=== PATIENT | female | born 1950 | race Caucasian/White ===

== ENCOUNTER 2019-09-18 23:42 | Inpatient (IN) | payer OTHER ==
--- OUTSIDE RECORDS SUMMARY | 2019-09-18 23:45 | XMS REPORT ---
:1950 Author Organization eClinicalWorks Care Team Providers Name Role Phone Mccann, Na Provider Role Unavailable Allergies, Adverse Reactions, Alerts Substance Reaction Event Type Bactrim DS Info Not Available Drug Allergy Problems Problem Type Condition Code Onset Dates Condition Status Assessment Influenza vaccination declined Z28.21 Active Assessment Vitamin D deficiency E55.9 Active Assessment Colon cancer screening declined Z53.20 Active Assessment Screening for osteoporosis Z13.820 Active Assessment Screening for breast cancer Z12.39 Active Assessment Body mass index (BMI) of 40.1 to Z68.41 Active 44.9 in adult Problem Depression with anxiety F41.8 Active Assessment Osteoporosis without current M81.0 Active pathological fracture, unspecified osteoporosis type Problem Benign essential HTN I10 Active Assessment CKD (chronic kidney disease) stage N18.3 Active 3, GFR 30-59 ml/min Problem Yeast infection of the skin B37.2 Active Problem CKD (chronic kidney disease) stage N18.3 Active 3, GFR 30-59 ml/min Problem Seasonal allergies J30.2 Active Problem Screening for breast cancer Z12.39 Active Problem Bilateral lower extremity edema R60.0 Active Assessment Hypokalemia E87.6 Active Assessment Bilateral lower extremity edema R60.0 Active Problem Vitamin D deficiency E55.9 Active Assessment GERD with esophagitis K21.0 Active Problem Body mass index (BMI) of 40.1 to Z68.41 Active 44.9 in adult Problem Osteoporosis without current M81.0 Active pathological fracture, unspecified osteoporosis type Problem Elevated blood pressure reading I10 Active with diagnosis of hypertension Problem Hypokalemia E87.6 Active Problem Memory disturbance R41.3 Active Assessment Elevated blood pressure reading I10 Active with diagnosis of hypertension Assessment Encounter for general adult medical Z00.01 Active examination with abnormal findings Problem Osteoporosis M81.0 Active Problem Obese E66.9 Active Problem Senile cataract, unspecified H25.9 Active age-related cataract type, unspecified laterality Problem GERD with esophagitis K21.0 Active Medications Medication Code Code Instructions Start End Status Dosage System Date Date Alendronate NDC 51766157814 70 MG Orally December Active TAKE ONE Sodium 28, WEEKLY 2019 Cholecalciferol ND 0 5000 UNIT Active 1 capsule Orally Once a day Losartan [facility] 94108760952 50 MG Orally Active 1 tablet Potassium Once a day Nystatin [facility] 05481063573 [id number] UNIT/ML Active 1 application Mouth/Throat to affected Four times a area day Spironolactone [facility] 29042355177 50 MG Orally Active 1 tablet with Once a day food Metoprolol [facility] 06318613533 50 MG Orally Active 1 tablet with Tartrate Twice a day food Triamcinolone [facility] 57979645942 0.1 % Active 1 application Acetonide Externally to affected Twice a day area Protonix [facility] 93425076938 40 MG Orally Active 1 tablet Once a day Potassium [facility] 16644074888 20 MEQ Orally March 07, Active 2 packets Chloride Once a day 2019 with food Amlodipine [facility] 32131618071 5 MG Orally Active 1 tablet Besylate Once a day Donepezil HCl [facility] 36682115506 10 MG Orally Active 1 tablet at Once a day bedtime Alendronate [facility] 00535415348 70 MG Orally March 07, Active 1 tablet Sodium once a week 2019 Ketoconazole [facility] 83439225928 2 % Externally Active 1 application twice a day to affected area Results No Known Results Summary Purpose eClinicalWorks Submission
--- OUTSIDE RECORDS SUMMARY | 2019-09-18 23:45 | XMS REPORT ---
:1950 Author Organization eClinicalWorks Care Team Providers Name Role Phone Mccann, Na Provider Role Unavailable Allergies No Known Allergies Problems Problem Type Condition Code Onset Dates Condition Status Problem Osteoporosis M81.0 Active Problem Depression with anxiety F41.8 Active Problem Benign essential HTN I10 Active Problem Memory disturbance R41.3 Active Problem Senile cataract, unspecified H25.9 Active age-related cataract type, unspecified laterality Problem GERD with esophagitis K21.0 Active Problem Obese E66.9 Active Problem Elevated blood pressure reading with I10 Active diagnosis of hypertension Problem Body mass index (BMI) of 40.1 to Z68.41 Active 44.9 in adult Problem Hypokalemia E87.6 Active Problem Seasonal allergies J30.2 Active Problem Yeast infection of the skin B37.2 Active Problem Osteoporosis without current M81.0 Active pathological fracture, unspecified osteoporosis type Problem CKD (chronic kidney disease) stage N18.3 Active 3, GFR 30-59 ml/min Medications No Known Medications Results No Known Results Summary Purpose eClinicalUSDS Submission
[2019-09-19 00:33] LABS: Urine Blood 3+ (NEG); Urine Glucose NEGATIVE (NEG); Urine Protein 2+ (NEG); Urine Specific Gravity 1.015 (1.005-1.030); Urine pH 6.5 (5.0-7.0)
[2019-09-19 00:38] LABS: Urine Bacteria LOADED /HPF (<20)
[2019-09-19 00:39] LABS: Urine Culture Reflex Order NOT NEEDED
[2019-09-19 01:53] LABS: Basophils % 0.1 % (0-1.3); Hematocrit 45.8 % (36.0-45.0); Lymphocytes % 4.4 % (15.3-44.8); MPV 8.5 fL (7.6-11.3); RBC Red Blood Cell Count 4.83 M/uL (3.86-4.86)
[2019-09-19 01:54] LABS: Protime INR 1.37
[2019-09-19 02:13] LABS: Albumin 3.5 g/dL (3.4-5.0); Bilirubin Direct 0.5 mg/dL (0-0.2); Bilirubin Total 1.5 mg/dL (0.2-1.0); Magnesium 1.8 mg/dL (1.8-2.4); Protein, Total 7.8 g/dL (6.4-8.2); Troponin (Emerg Dept Use Only) 0.1 ng/mL (0.0-0.045)
[2019-09-19 02:14] LABS: Potassium 2.4 mmol/L (3.5-5.1)
[2019-09-19 02:16] LABS: Blood Morphology Comment NOT SEEN (NOT SEEN); Platelet Estimate ADEQ
--- NOTE | 2019-09-19 02:30 | ER ---
Nurse's Notes [facility] Name: Keara Castañeda Age: 68 yrs Sex: Female : 1950 Arrival Date: 09/18/2019 Time: 23:48 Bed 4 Private MD: Diagnosis: Confusion. Urosepsis. Hypokalemia Presentation: 09/18 23:53 Presenting complaint: EMS states: "it was reported to use that the pt had fallen today jd3 and has been on the ground since roughly 1230. family said they talked to her at 0900 this morning and she was fine. family reported to us that she has a history of UTI's that cause AMS. the pt can tell us her name and date of , but is disoriented to time, situation. pt denies any pain at this time. the pt smelled heavily of urine on our arrival. family reported to us that she has recently been diagnosed with a UTI. when asking for home medications we were not able to find any in the house and family reported to us that there might be a problem with getting medications filled having problems with the pharmacy and insurance.". Transition of care: patient was not received from another setting of care. Onset of symptoms was September 18, 2019. Risk Assessment: Do you want to hurt yourself or someone else? Patient reports no desire to harm self or others. Initial Sepsis Screen: Does the patient meet any 2 criteria? Altered Mental Status. No. Patient's initial sepsis screen is negative. Does the patient have a suspected source of infection? No. Patient's initial sepsis screen is negative. Care prior to arrival: IV initiated. 20 GA, in the right antecubital area. 23:53 Method Of Arrival: EMS: [facility] jd3 23:53 Acuity: SELENA 2 jd3 Historical: - Allergies: 09/19 00:00 Codeine; jd3 00:00 Sulfa (Sulfonamide Antibiotics); jd3 - Home Meds: 00:14 Unable to obtain [Active]; jd3 - PMHx: 00:00 brain aneurysm; embolism uknown; Hypertension; UTI; jd3 00:14 High Cholesterol; jd3 - PSHx: 00:00 brain surgery; shunt placement; Tonsillectomy; vena cava filter; abd sx; jd3 - Immunization history:: Adult Immunizations up to date. - Social history:: Smoking status: Patient/guardian denies using tobacco. - Ebola Screening: : Patient negative for fever greater than or equal to 101.5 degrees Fahrenheit, and additional compatible Ebola Virus Disease symptoms. Screenin:05 Abuse screen: Denies threats or abuse. Nutritional screening: No deficits noted. jd3 Tuberculosis screening: No symptoms or risk factors identified. Fall Risk Fall in past 12 months (25 points). IV access (20 points). Ambulatory Aid- Crutches/Cane/Walker (15 pts). Gait- Weak (10 pts.). Mental Status- Overestimates/Forgets Limitations (15 pts.). Total Valencia Fall Scale indicates High Risk Score (45 or more points). Fall prevention measures have been instituted. Side Rails Up X 2 Placed Close to Nursing Station Frequent Obs/Assessments Occuring Family Present and informed to notify staff if the need to leave the bedside. Assessment: 00:02 General: Appears in no apparent distress. comfortable, Behavior is calm, cooperative, jd3 Smells of urine. Pain: Denies pain. Neuro: Level of Consciousness is awake, alert, obeys commands, confused, Oriented to person, place. Cardiovascular: Denies chest pain, Heart tones S1 S2 present Capillary refill < 3 seconds Patient's skin is warm and dry. Respiratory: Airway is patent Respiratory effort is even, unlabored, Respiratory pattern is regular, symmetrical, Breath sounds are clear bilaterally. Denies cough, shortness of breath. GI: No signs and/or symptoms were reported involving the gastrointestinal system. : Urine is cloudy, Denies burning with urination. EENT: No signs and/or symptoms were reported regarding the EENT system. Derm: Skin is intact, Skin is dry, Skin is normal, Skin temperature is warm Wound noted left elbow Wound is hematoma and small aberration noted to left elbow. Musculoskeletal: Circulation, motion, and sensation intact. Range of motion: intact in all extremities. 00:32 Reassessment: Patient appears in no apparent distress at this time. No changes from jd3 previously documented assessment. Patient and/or family updated on plan of care and expected duration. Pain level reassessed. family at bedside. 01:00 Reassessment: Patient appears in no apparent distress at this time. No changes from jd3 previously documented assessment. Patient and/or family updated on plan of care and expected duration. Pain level reassessed. 02:06 Reassessment: Patient appears in no apparent distress at this time. No changes from jd3 previously documented assessment. Patient and/or family updated on plan of care and expected duration. Pain level reassessed. pt A\\T\\O X 2. disoriented to time and situation. even and unlabored respirations, no distress noted, in bed with family at bedside. awaiting results. 02:15 Reassessment: provider notified of critical labs involving lactate at 2.6, potassium at jd3 2.4, WBC at 22.3. 03:16 Reassessment: Patient appears in no apparent distress at this time. No changes from jd3 previously documented assessment. Patient and/or family updated on plan of care and expected duration. Pain level reassessed. awaiting orders and room assignment. 04:15 Reassessment: Patient appears in no apparent distress at this time. No changes from jd3 previously documented assessment. Patient and/or family updated on plan of care and expected duration. Pain level reassessed. Patient denies pain at this time. 04:25 Reassessment: report given to Marlys GREENE nurse for ICU 1. jd3 Vital Signs: 00:00 BP 157 / 119; Pulse 100; Resp 19 S; Temp 98.3(O); Pulse Ox 95% on R/A; Weight 85.28 kg jd3 (R); Height 5 ft. 4 in. (162.56 cm) (R); Pain 0/10; 00:31 BP 162 / 84; Pulse 97; Resp 20 S; Pulse Ox 93% on R/A; Pain 0/10; jd3 02:08 BP 151 / 94; Pulse 86; Resp 20 S; Pulse Ox 95% on R/A; jd3 03:16 BP 150 / 100; Pulse 88; Resp 19 S; Pulse Ox 95% on 2 lpm NC; jd3 04:14 BP 149 / 77; Pulse 94; Resp 15 S; Pulse Ox 94% on 2 lpm NC; Pain 0/10; jd3 00:00 Body Mass Index 32.27 (85.28 kg, 162.56 cm) jd3 ED Course: 09/18 23:48 Patient arrived in ED. ds1 23:49 Warner Rodriges MD is Attending Physician. pkl 23:53 Kurtis Fernandez, RN is Primary Nurse. jd3 23:59 Triage completed. jd3 09/19 00:01 Arm band placed on. jd3 00:05 Patient has correct armband on for positive identification. Placed in gown. Bed in low jd3 position. Call light in reach. Side rails up X2. Adult w/ patient. 01:17 CT completed. Patient tolerated procedure well. Patient moved to CT via stretcher. Patient moved back from CT. 01:45 Inserted saline lock: 20 gauge in left forearm, using aseptic technique. Blood rr5 collected. 02:15 Notified ED physician of a critical lab result(s). lactate of 2.6, potassium of 2.4, jd3 WBC of 22.3. 02:28 Jareth Santana MD is Hospitalizing Provider. pkl 04:15 Patient admitted, IV remains in place. jd3 04:15 No provider procedures requiring assistance completed. jd3 Administered Medications: 02:34 Drug: NS 0.9% 1000 ml Route: IV; Rate: 125 ml/hr; Site: left forearm; rr5 05:18 Follow up: Response: No adverse reaction; IV Status: Infusion continued upon admission jd3 02:35 Drug: Potassium Chloride 20 mEq Route: IV; Rate: per protocol; Site: left forearm; rr5 05:18 Follow up: Response: No adverse reaction; IV Status: Infusion continued upon admission jd3 Outcome: 02:29 Decision to Hospitalize by Provider. pkl 05:18 Patient left the ED. bb 05:18 Admitted to ICU accompanied by nurse, via stretcher, room 1, on monitor, with chart, jd3 Report called to Marlys GREENE 05:18 Condition: stable 05:18 Instructed on the need for admit, Demonstrated understanding of instructions. Signatures: Warner Rodriges MD MD pkl Kadeem Zavala Melvi Pascual ds1 Kristina Hardy RN RN bb Davies, Jonathon, RN RN jShahbaz Brito, RAMONA RN rr5 Corrections: (The following items were deleted from the chart) 00:06 00:05 Fall Risk Ambulatory Aid- None/Bed Rest/Nurse Assist (0 pts). Gait- Normal/Bed jd3 Rest/Wheelchair (0 pts) Mental Status- Oriented to own ability (0 pts). Total Valencia Fall Scale indicates No Risk (0-24 pts). jd3 00:00 Home Meds: blood pressure pills unknown [Inactive]; jd3 jd3 00:00 Home Meds: Tylenol [Inactive]; jd3 jd3 00:00 Home Meds: lisinopril-hydrochlorothiazide 20-12.5 mg Oral tab 2 tab once daily jd3 [Inactive]; jd3 00:02 Derm: Skin is intact, Skin is dry, Skin is normal, Skin temperature is warm jd3 jd3 00:02 General: Appears in no apparent distress. comfortable, obese, Behavior is calm, jd3 cooperative, Smells of urine. jd3 00:02 : Urine is cloudy, Denies burning with urination, jd3 jd3 04:17 04:14 Pulse 94bpm; Resp 15bpm; Spontaneous; Pulse Ox 94% 2 lpm Nasal Cannula; Pain jd3 0/10; jd3
--- NOTE | 2019-09-19 02:31 | EDPHYS ---
Physician Documentation [facility] Name: Keara Castañeda Age: 68 yrs Sex: Female : 1950 Arrival Date: 09/18/2019 Time: 23:48 Bed 4 Private MD: ED Physician Warner Rodriges HPI: 09/19 00:16 This 68 yrs old Female presents to ER via EMS with complaints of Confusion. pkl 00:16 Patient apparently fell earlier today at about 1230. Was found on the floor. has pkl history of UTI and altered mental status. Historical: - Allergies: 00:00 Codeine; jd3 00:00 Sulfa (Sulfonamide Antibiotics); jd3 - Home Meds: 00:14 Unable to obtain [Active]; jd3 - PMHx: 00:00 brain aneurysm; embolism uknown; Hypertension; UTI; jd3 00:14 High Cholesterol; jd3 - PSHx: 00:00 brain surgery; shunt placement; Tonsillectomy; vena cava filter; abd sx; jd3 - Immunization history:: Adult Immunizations up to date. - Social history:: Smoking status: Patient/guardian denies using tobacco. - Ebola Screening: : Patient negative for fever greater than or equal to 101.5 degrees Fahrenheit, and additional compatible Ebola Virus Disease symptoms. ROS: 00:20 Eyes: Negative for injury, pain, redness, and discharge, ENT: Negative for injury, pkl pain, and discharge, Neck: Negative for injury, pain, and swelling, Cardiovascular: Negative for chest pain, palpitations, and edema, Respiratory: Negative for shortness of breath, cough, wheezing, and pleuritic chest pain, Abdomen/GI: Negative for abdominal pain, nausea, vomiting, diarrhea, and constipation, Back: Negative for injury and pain. 00:20 : Negative for urinary symptoms. 00:20 MS/extremity: Negative for injury or acute deformity. 00:20 Skin: Negative for rash. 00:20 Neuro: Positive for confusion. Exam: 00:20 Head/Face: Normocephalic, atraumatic. Eyes: Pupils equal round and reactive to light, pkl extra-ocular motions intact. Lids and lashes normal. Conjunctiva and sclera are non-icteric and not injected. Cornea within normal limits. Periorbital areas with no swelling, redness, or edema. ENT: Nares patent. No nasal discharge, no septal abnormalities noted. Tympanic membranes are normal and external auditory canals are clear. Oropharynx with no redness, swelling, or masses, exudates, or evidence of obstruction, uvula midline. Mucous membranes moist. Neck: Trachea midline, no thyromegaly or masses palpated, and no cervical lymphadenopathy. Supple, full range of motion without nuchal rigidity, or vertebral point tenderness. No Meningismus. Chest/axilla: Normal chest wall appearance and motion. Nontender with no deformity. No lesions are appreciated. Cardiovascular: Regular rate and rhythm with a normal S1 and S2. No gallops, murmurs, or rubs. Normal PMI, no JVD. No pulse deficits. Respiratory: Lungs have equal breath sounds bilaterally, clear to auscultation and percussion. No rales, rhonchi or wheezes noted. No increased work of breathing, no retractions or nasal flaring. Abdomen/GI: Soft, non-tender, with normal bowel sounds. No distension or tympany. No guarding or rebound. No evidence of tenderness throughout. Back: No spinal tenderness. No costovertebral tenderness. Full range of motion. Skin: Warm, dry with normal turgor. Normal color with no rashes, no lesions, and no evidence of cellulitis. MS/ Extremity: Pulses equal, no cyanosis. Neurovascular intact. Full, normal range of motion. 00:20 Neuro: Orientation: appropriate for stated age, Mentation: is normal, Cranial nerves: grossly normal, Motor: moves all fours. Vital Signs: 00:00 BP 157 / 119; Pulse 100; Resp 19 S; Temp 98.3(O); Pulse Ox 95% on R/A; Weight 85.28 kg jd3 (R); Height 5 ft. 4 in. (162.56 cm) (R); Pain 0/10; 00:31 BP 162 / 84; Pulse 97; Resp 20 S; Pulse Ox 93% on R/A; Pain 0/10; jd3 02:08 BP 151 / 94; Pulse 86; Resp 20 S; Pulse Ox 95% on R/A; jd3 03:16 BP 150 / 100; Pulse 88; Resp 19 S; Pulse Ox 95% on 2 lpm NC; jd3 04:14 BP 149 / 77; Pulse 94; Resp 15 S; Pulse Ox 94% on 2 lpm NC; Pain 0/10; jd3 00:00 Body Mass Index 32.27 (85.28 kg, 162.56 cm) jd3 MDM: 09/18 23:49 Patient medically screened. pkl 09/19 02:26 Data reviewed: vital signs, nurses notes, lab test result(s), EKG, radiologic studies, pkl CT scan, plain films. ED course: Talked to Dr. Santana. To admit. 09/18 23:58 Order name: Urine Dipstick--Ancillary (enter results) oe 09/19 00:04 Order name: Urine Microscopic Only jd3 09/19 00:04 Order name: Urine Culture jd3 09/19 00:15 Order name: Basic Metabolic Panel pkl 09/19 00:15 Order name: CBC with Diff pkl 09/19 00:15 Order name: LFT's pkl 09/19 00:15 Order name: Magnesium pkl 09/19 00:15 Order name: NT PRO-BNP pkl 09/19 00:15 Order name: PT-INR pkl 09/19 00:15 Order name: Troponin (emerg Dept Use Only) pkl 09/19 00:20 Order name: Lactate pkl 09/19 00:33 Order name: Urine Dipstick-Ancillary; Complete Time: 00:43 EDMS 09/19 00:39 Order name: Urine Microscopic Only; Complete Time: 00:43 EDMS 09/19 02:09 Order name: Protime (+INR); Complete Time: 02:11 EDMS 09/19 00:15 Order name: XRAY Chest (1 view) pkl 09/19 00:15 Order name: CT Head Brain wo Cont pkl 09/19 02:15 Order name: Basic Metabolic Panel; Complete Time: 02:17 EDMS 09/19 02:15 Order name: Liver (Hepatic) Function; Complete Time: 02:17 EDMS 09/19 02:15 Order name: Troponin (Emerg Dept Use Only); Complete Time: 02:17 EDMS 09/19 02:15 Order name: NT PRO-BNP; Complete Time: 02:17 EDMS 09/19 02:15 Order name: Magnesium; Complete Time: 02:17 EDMS 09/19 02:15 Order name: Lactate; Complete Time: 02:17 EDMS 09/19 02:17 Order name: CBC with Automated Diff; Complete Time: 02:23 EDHI 09/19 02:17 Order name: Manual Differential; Complete Time: 02:23 EDHI 09/19 04:41 Order name: CBC with Automated Diff; Complete Time: 06:03 EDMS 09/19 04:58 Order name: Comprehensive Metabolic Panel; Complete Time: 06:03 EDHI 09/19 05:00 Order name: Troponin I [facility] 09/19 05:15 Order name: Lactate Sepsis 2 HR Follow-up; Complete Time: 06:03 EDMS 09/19 00:15 Order name: EKG; Complete Time: 00:16 pkl 09/19 00:15 Order name: Cardiac monitoring; Complete Time: 00:25 pkl 09/19 00:15 Order name: EKG - Nurse/Tech; Complete Time: 00:25 pkl 09/19 00:15 Order name: IV Saline Lock; Complete Time: 00:21 pkl 09/19 00:15 Order name: Labs collected and sent; Complete Time: 00:25 pkl 09/19 00:15 Order name: O2 Per Protocol; Complete Time: 00:19 pkl 09/19 00:15 Order name: O2 Sat Monitoring; Complete Time: 00:19 pkl Administered Medications: 02:34 Drug: NS 0.9% 1000 ml Route: IV; Rate: 125 ml/hr; Site: left forearm; rr5 05:18 Follow up: Response: No adverse reaction; IV Status: Infusion continued upon admission jd3 02:35 Drug: Potassium Chloride 20 mEq Route: IV; Rate: per protocol; Site: left forearm; rr5 05:18 Follow up: Response: No adverse reaction; IV Status: Infusion continued upon admission jd3 Disposition: 09/19/19 02:29 Hospitalization ordered by Jareth Santana for Inpatient Admission. Preliminary diagnosis is Confusion. Urosepsis. Hypokalemia. - Bed requested for Intensive Care Unit. - Status is Inpatient Admission. bb - Condition is Stable. - Problem is new. - Symptoms are unchanged. UTI on Admission? Yes Signatures: Dispatcher [facility] Johanny Luu RN RN mw Lam, Pin, MD MD pkl Ballard, Brenda, RN RN bb Davies, Jonathon, RN RN jd3 Shahbaz Chavarria RN RN rr5 Corrections: (The following items were deleted from the chart) 00:14 00:00 Home Meds: blood pressure pills unknown [Inactive]; jd3 jd3 00:14 00:00 Home Meds: Tylenol [Inactive]; jd3 jd3 00:14 00:00 Home Meds: lisinopril-hydrochlorothiazide 20-12.5 mg Oral tab 2 tab once daily jd3 [Inactive]; jd3 02:46 02:29 Hospitalization Ordered by Jareth Santana MD for Inpatient Admission. Preliminary pkl diagnosis is Confusion. Urosepsis. Hypokalemia. Bed requested for Telemetry/MedSurg (Inpatient). Status is Inpatient Admission. Condition is Stable. Problem is new. Symptoms are unchanged. UTI on Admission? Yes. pkl 03:42 02:46 09/19/2019 02:29 Hospitalization Ordered by Jareth Santana MD for Inpatient mw Admission. Preliminary diagnosis is Confusion. Urosepsis. Hypokalemia. Bed requested for Intensive Care Unit. Status is Inpatient Admission. Condition is Stable. Problem is new. Symptoms are unchanged. UTI on Admission? Yes. pkl 05:18 03:42 09/19/2019 02:29 Hospitalization Ordered by Jareth Santana MD for Inpatient bb Admission. Preliminary diagnosis is Confusion. Urosepsis. Hypokalemia. Bed requested for Intensive Care Unit. Status is Inpatient Admission. Condition is Stable. Problem is new. Symptoms are unchanged. UTI on Admission? Yes. mw
[2019-09-19] MEDS ORDERED: KCL 20 MEQ/100 mL IVPB 40 MEQ/200 ML BAG IV ONE (02:34)
[2019-09-19] MEDS ORDERED: NA CHLORIDE 0.9% 1,000 ML ONE (02:34)
[2019-09-19] MEDS ORDERED: MORPHINE 4 MG/ML SYR IV PRN (03:23)
[2019-09-19] MEDS ORDERED: ALBUTEROL 2.5 MG/3 ML NEB SOL NEB PRN (03:23)
[2019-09-19] MEDS ORDERED: ONDANSETRON 4 MG/2 ML VIAL IV PRN (03:23)
[2019-09-19] MEDS ORDERED: POTASSIUM 25 MEQ EFFERV TAB PO ONE (03:25)
[2019-09-19] MEDS ORDERED: ACETAMINOPHEN 325 MG TABLET PO PRN (03:25)
[2019-09-19] MEDS ORDERED: HYDRALAZINE HCL 20 MG/ML VIAL IV ONE (03:30)
[2019-09-19] MEDS: POTASSIUM CL 40 MEQ in NA CHLORIDE 0.9% 500 ML IV SCH ×2 (04:00→10:43)
[2019-09-19] MEDS ORDERED: D5.45NS W/KCL 20MEQ 1,000 ML IV SCH (04:00)
--- NOTE | 2019-09-19 04:20 | HP ---
Date of Admission: 09/19/2019 Presenting Complaint: Fall and confusion. History Of Present Illness: Ms. Keara Castañeda is a 68-year-old female with past medical hi story of hypertension, brain aneurysm with subarachnoid bleed in the past status post clip, resident at an assisted living facility, who was brought in after being found on the floor this evening. Ban ent apparently has fallen. Patient was noted to be confused and was transferred to the ED. In the E D, patient was initially confused, but reported mental status slowly improving. Patient is able to a nswer a few questions. She states she was trying to pull a towel from a slip box changer in the laundry room a t the long term facility, when she fell. She states she did not lose consciousness, but she was t oo weak to get up. She states she fell about 6 hours prior to presentation in the hospital. Her flower ghter, who is in the room with the patient, is happy with patient's history. Daughter, however, does not know patient's current medications or her current medical history. Patient, however, states she is on a diuretic. She recalls she has chronic low potassium and that she takes her potassium pills. She states her blood pressure has been borderline elevated, given a recent followup with her regula r physician. She denies any headaches. She denies any shortness of breath. She denies any recent d iarrhea. She denies any dysuria or urinary frequency or purulent urine smell. She states she has re current UTIs about 1 every year. Daughter states patient has occasional memory problems, but no prio r episodes of confusion. Past Medical History: Significant for hypertension, CVA with history of brain aneurysm and subarachn oid bleed, history of brain clip, history of DVT during hospitalization for the brain bleed, history of IVC filter placement. Past Surgical History: Brain aneurysm clip, IVC filter placement, tonsillectomy. Family History: Noncontributory in this elderly female. Allergies: CODEINE AND SULFA DRUGS. Home Medications: Unknown, but apparently, takes medications for blood pressure including a diuretic as well as potassium. Review of Systems: given patient's reported altered mental status, but patient denies any other symptoms exce pt as mentioned in the HPI. Social History: Patient resides in a [facility] community facility. She is fully functional at [facility], able to manage her own medications. She denies any tobacco, alcohol, or illicit drug use. Physical Examination: Current Vital Signs: Blood pressure of 163/128, pulse of 90, respiratory rate of 19, temperature afe brile, on 2 L nasal cannula. General: Elderly female, calm, awake. HEENT: Head is atraumatic, normocephalic. Pupils are equal, round, and reactive to light. [place] con junctivae. Dry oral mucosa, but secretions at the back of the throat. Neck: No JVD. No carotid bruit. Respiratory: Good air entry with mild bibasilar crepitations. Cardiovascular: S1, S2. Rate and rhythm regular. Loud A2. No murmur. No reproducible chest wall tenderness. Abdomen: Full, soft, nontender. Bowel sounds positive. No suprapubic fullness. Extremities: Trace to 1+ pedal edema bilaterally. No calf tenderness. Neuro: Patient is awake, conversant. She is oriented to person and place, but not to time. Her spe ech has good flow, but intermittent word-finding difficulty noted. She is moving extremities symmetr ically with no neurological deficit. Laboratory Data: WBC 22,000, hemoglobin 15.6, platelet 297, neutrophils 89%. INR of 1.3. Sodium 14 3, potassium 2.4, chloride 107, bicarb 26, BUN 11, creatinine 1.09, lactic acid of 2.6, calcium 8.8, magnesium 1.8. T-bilirubin of 1.5. AST and alkaline phosphatase normal. Troponin 0.1. ProBNP of 3 747. Albumin 3.5. Urinalysis shows greater than 50 wbc's with loaded urine bacteria and 3+ leukocyt e esterase. Chest x-ray shows no acute intrathoracic abnormality. Head CT shows no acute infarct or bleed. EKG shows sinus rhythm at 90 beats per minute. Mild LVH pattern, but no significant ST-segment changes. Chest x-ray shows no acute infiltrate. Prominent aortic notching noted. Impression: 1.Urinary tract infection with sepsis. 2.Severe hypokalemia. 3.Metabolic encephalopathy due to urinary tract infection. 4.Presumed diastolic congestive heart failure. 5.Hypertension, uncontrolled. Plan: We will admit patient to the intensive care unit given patient's age and comorbidities. We wi ll manage patient for the followin.UTI with sepsis. We will start patient on empiric Levaquin and Zosyn. We will obtain blood cultu re x2. We will follow urine culture and adjust antibiotics. Follow repeat lactic acid level. 2.Despite elevated proBNP and also stated history of CHF, we will start patient on low-dose hydratio n with normal saline with potassium for now. 3.Severe hypokalemia may be the cause of weakness and fall before. We will replete aggressively. W e will do both IV potassium replacement as well as p.o. We will also give 1 dose of magnesium since borderline magnesium level. 4.Metabolic encephalopathy. Follow with UTI treatment. 5.Hypertension. Patient's medications are not available at this time. We will do IV hydralazine q. 6 for now and start patient on p.o. medicine when her home medicines are obtained. Patient might nee d adjustment of her diuretic with the potassium-sparing one. 6.DVT prophylaxis. Subcutaneous Lovenox. 7.Advance directives. Daughter wishes patient to be full code, which patient is agreeable to. Total time spent in review of record, discussion with patient, and evaluation was greater than 70 min utes. EO/MODL Voice ID: [id number]
[2019-09-19 04:36] LABS: Basophils % 0.2 % (0-1.3); Hematocrit 41.1 % (36.0-45.0); Lymphocytes % 4.5 % (15.3-44.8); MPV 8.9 fL (7.6-11.3); RBC Red Blood Cell Count 4.38 M/uL (3.86-4.86)
[2019-09-19 04:58] LABS: Albumin 3.2 g/dL (3.4-5.0); Bilirubin Total 1.5 mg/dL (0.2-1.0); Potassium 2.7 mmol/L (3.5-5.1); Protein, Total 7.1 g/dL (6.4-8.2)
[2019-09-19 05:00] LABS: Troponin I 0.15 ng/mL (0.0-0.045)
[2019-09-19 05:33] VITALS: BMI 32.1
[2019-09-19] MEDS: Levofloxacin500mg IV 500 MG/100 ML BAG IV SCH (05:55)
[2019-09-19] MEDS: METOPROLOL TAR 25 MG TAB PO SCH ×2 (05:58→17:21)
[2019-09-19] MEDS: PANTOPRAZOLE 40MG TABLET PO SCH (05:58)
[2019-09-19 07:29] LABS: CKMB Creatine Kinase MB 16.1 ng/mL (0.3-3.6)
--- NOTE | 2019-09-19 08:49 | RAD REPORT ---
EXAM DESCRIPTION: Carlitos Single View09/19/2019 12:54 am CLINICAL HISTORY: Chest pain COMPARISON: 2017 FINDINGS: The lungs appear clear of acute infiltrate. The heart is mildly enlarged IMPRESSION: No acute abnormalities displayed
--- NOTE | 2019-09-19 09:39 | EKG ---
Test Date: 2019-09-19 Test Time: 00:23:38 Order Management Specialist: RR MEASUREMENT RESULTS: Intervals: Rate: 101 SD: 208 QRSD: 96 QT: 376 QTc: 487 Tinnie: P: 47 SD: 208 QRS: -34 T: 0 INTERPRETIVE STATEMENTS: Sinus tachycardia with premature atrial complexes Left axis deviation non specific ST and T abnormality Abnormal ECG Compared to ECG 11/13/2016 16:51:10 Atrial premature complex(es) now present Sinus rhythm no longer present Ventricular premature complex(es) no longer present Electronically Signed On 09-19-19 09:39:12 CHILD CARE by Rm Arriola
[2019-09-19] MEDS ORDERED: NA CHLORIDE 0.9% 1,000 ML IV SCH (10:00)
[2019-09-19] MEDS: HEPARIN 5000 UNIT/ML 1 ML VIAL SQ SCH ×2 (10:14→17:21)
[2019-09-19] MEDS: THIAMINE HCL 100 MG TABLET PO SCH (10:16)
--- NOTE | 2019-09-19 10:21 | RAD REPORT ---
EXAM DESCRIPTION: CT - Head Brain Wo Cont - 09/19/2019 2:30 am CLINICAL HISTORY: Fall, confusion. Prior MCA aneurysm. COMPARISON: 02/05/2018 TECHNIQUE: Axial [address] imaging of the brain. Reformatted coronal and sagittal images ob tained. This examination was performed according to our departmental dose optimization program, which include s automated exposure control, adjustment of the mA and/or kV according to patient size and/or use of iterative reconstruction technique. FINDINGS: Right occipital intraventricular shunt catheter terminates within the medial aspect of the frontal horn of the right lateral ventricle. Position is stable. Mild prominence of the ventricles d ue to cortical atrophy. The ventricle size and contour stable since 2018. There is left lateral front al and temporal encephalomalacia due to prior MCA infarct and prior surgery. Metallic densities along the left MCA territory from prior surgery. Overlying lateral left temporal craniotomy also noted. There is significant decreased white matter attenuation secondary to chronic microvascular ischemic c hange. There is no mass or midline shift. There is no intracranial acute bleed. The cerebellum and ve rmis appear normal. Fourth ventricle is midline. Intraorbital contents appear normal. Clear paranasal sinuses and mastoid air cells as visualized. Sku ll base is intact. Mild right parietal scalp soft tissue swelling. No foreign body or subcutaneous em physema. IMPRESSION: 1. Right parietal scalp soft tissue edema. No intracranial bleed or skull fracture. 2. Stable moderate to marked senescent brain changes. Stable postoperative left temporal changes as d etailed above. Electronically signed by: Hazel Drake DO 09/19/2019 2:21 AM FREELANCE OPERATOR Due to temporary technical issues with the PACS/Fluency reporting system, reports are being signed by the in house radiologist as a courtesy to ensure prompt reporting. The interpreting radiologist is f ully responsible for the content of the report
[2019-09-19] MEDS: PIPER/TAZO/NS 3.375gm 3.375 GM/100 ML BAG IVPB SCH ×2 (10:43→20:05)
[2019-09-19] MEDS: NS KCL 40MEQ 40 MEQ/1,000 ML BAG IV SCH (15:06)
[2019-09-19] MEDS ORDERED: POTASSIUM CL 40 MEQ in NA CHLORIDE 0.9% 500 ML IV ONE (16:00)
--- NOTE | 2019-09-19 16:27 | PN ---
Date of Progress Note: 09/19/2019 Subjective: Patient seen and examined. Chart reviewed and case discussed with RN. Patient still se ems to be somewhat lethargic, ill-appearing, and complains of some generalized malaise. Code Status: Full. Medications: List reviewed. Physical Examination: Vital Signs: Temperature 100, pulse 96, blood pressure 150/93, respirations 16, O2 of 97% on room ai r. General: Awake, alert, oriented x3, obese female, ill-appearing. CV: S1, S2. Sinus tachycardia. Peripheral pulses present. Respiratory: Moving air well bilaterally. No wheezing or stridor. No use of accessory muscles. Gastrointestinal: Abdomen is soft, nontender, nondistended. Positive bowel sounds. Extremities: No clubbing, cyanosis, or edema. Neurologic: Nonfocal. Laboratory Data: Sodium 145, potassium 2.7, chloride 110, CO2 of 25, BUN 11, creatinine 0.99, glucos e 121. Lactate 2.6. Repeat lactate is 1.9, calcium 8.4, total bilirubin 1.5, AST 103, ALT 36. CK l evel is 4198, troponin 0.15. Albumin 3.2. Repeat potassium 2.7. WBC 21.4, H and H 14.6 and 41.1, p latelets 267, neutrophils 87%. Microbiology studies are pending. Head CT scan shows right parietal scalp soft tissue edema. No intracranial bleed or skull fracture. Stable moderate to marked senesce nt brain changes. Stable postoperative left temporal changes as detailed above. Assessment And Plan: 1.Sepsis secondary to urinary tract infection. We will continue with IV fluids, broad-spectrum IV a ntibiotics. Follow up on cultures. Patient has elevated white blood cell count. Lactate is normali zed. Has multiple electrolyte abnormalities. 2.Acute cystitis with hematuria. We will continue on IV antibiotics. We will follow up on urine cu lture. 3.Acute metabolic encephalopathy, patient is now back to baseline. 4.Diastolic congestive heart failure, probably we will continue with monitoring I's and O's. 5.Essential hypertension, uncontrolled. We will continue with hydralazine p.r.n. 6.Hypokalemia. We will replace and monitor. 7.Elevated troponin level likely due to sepsis, doubt acute coronary syndrome. 8.Acute rhabdomyolysis, nontraumatic. CK level is 4198. We will adjust IV fluids. Consult Nephrol ogy. Plan: Continue monitoring in ICU setting. SA/MODL Voice ID: [id number] Report ID: [id number]
--- NOTE | 2019-09-19 16:57 | CON ---
Date of Consultation: 09/19/2019 Reason For Consultation: Hypokalemia, hypomagnesemia, rhabdomyolysis. History Of Present Illness: This is a pleasant 68-year-old female with significant past medical hist ory of hypertension, CVA, status post brain aneurysm clip, complicated with subarachnoid bleed, DVT s tatus post IVC filter, apparently patient found on the floor in the assisted living for almost 10-12 hours after fall. Upon arrival to the hospital, found to have UTI and rhabdomyolysis. For that reas on, we have been consulted. Patient was started on aggressive hydration. Patient is slightly confus ed. Patient denied any fever, any chills. Past Medical History: Includes: 1.Hypertension. 2.CVA. 3.Brain aneurysm, status post clips. 4.Subarachnoid hemorrhage. 5.DVT status post IVC filter. Past Surgical History: Includes: 1.Brain aneurysm clip. 2.IVC filter. 3.Tonsillectomy. Family History: Positive for hypertension. Allergies: TO CODEINE AND SULFA. Long Term Medications: Include: 1.Levaquin. 2.Thiamine. 3.Pantoprazole. 4.Vitamin with calcium. Current Medications In The Hospital: Include: 1.Tylenol. 2.Albuterol. 3.Levaquin. 4.Melatonin. 5.Metoprolol 25 b.i.d. 6.Pantoprazole. 7.Zosyn. 8.IV fluid. Review of Systems: General: Patient is a little bit confused. Head and Neck: No red eye. Has headache. GI: Has nausea. No vomiting. : No polyuria, no dysuria, no hematuria. Electrician Journeyman Wireman: No vaginal discharge. Respiratory: Has shortness of breath. Cardiovascular: No chest pain. Has leg swelling. Endocrine: No polydipsia. Skin: No rash. Neuro: Has fall. Musculoskeletal: Has muscle cramp. Endocrine: No polydipsia. Physical Examination: Vital Signs: When I saw the patient, blood pressure 118/67, pulse of 89. Patient had good urine out put. Chest: Faint crackles bilateral on the base. Heart: S1, S2. Systolic murmur. Abdomen: Soft, nontender. Extremities: Trace edema. Neuro: Alert, still confused. No focal. Laboratory Data: WBC 21.4, H and H 14.6/41.1, platelets 267. Baseline H and H are 13/38.1. Sodium 145, potassium 2.7, bicarb 25, BUN 11, creatinine 0.9, calcium 8.4. Lactic acid 2.6. CK 4198. Albu min 3.2, corrected calcium is 9. Vitamin D level before is 11. BNP 3700. Chest x-ray showing no infiltration. UA showing a specific gravity of 1.015, pH of 6.5, rbc of 20, w bc more than 50, +2 protein. Assessment And Plan: 1.Rhabdomyolysis secondary to fall. I am going to continue the patient on aggressive hydration. I am going to increase intravenous fluid to 125 per hour and we will add potassium to it. 2.We will monitor her kidney function and her urine pH, currently above 6.5, which is acceptable. 3.Hypokalemia, hypomagnesemia. We will supplement. I am going to advise to have at least 120 mEq o f potassium today. We will add 40 to her fluid and we will follow up. 4.Fall. We will follow up with the Primary. 5.Urinary tract infection. Continue current antibiotic. We will follow up culture. Thank you, Dr. Garcia, for allowing us to participate in the care of your patient. AMPARO Voice ID: [id number] Report ID: [id number]
[2019-09-19] MEDS ORDERED: Magnesium Sulfate 2gm IVPB 2 G/50 ML BAG IV ONE (18:44)
[2019-09-19] MEDS ORDERED: KCL 20 MEQ/100 mL IVPB 20 MEQ/100 ML BAG IV SCH (23:45)
[2019-09-20] MEDS: NS KCL 40MEQ 40 MEQ/1,000 ML BAG IV SCH ×3 (00:28→19:00)
[2019-09-20] MEDS: HEPARIN 5000 UNIT/ML 1 ML VIAL SQ SCH ×3 (00:49→17:13)
[2019-09-20] MEDS: Levofloxacin500mg IV 500 MG/100 ML BAG IV SCH (04:13)
[2019-09-20 06:02] LABS: Absolute Lymphocytes (CBC) 1.1 K/uL (0.7-4.9); Basophils % 0.3 % (0-1.3); Lymphocytes % 6.7 % (15.3-44.8); MPV 9.7 fL (7.6-11.3); RBC Red Blood Cell Count 3.59 M/uL (3.86-4.86)
[2019-09-20] MEDS: PANTOPRAZOLE 40MG TABLET PO SCH (06:03)
[2019-09-20] MEDS: METOPROLOL TAR 25 MG TAB PO SCH ×2 (06:03→17:13)
[2019-09-20 06:04] LABS: Albumin 2.3 g/dL (3.4-5.0); Bilirubin Total 0.8 mg/dL (0.2-1.0); Magnesium 2.4 mg/dL (1.8-2.4); Phosphorus 1.4 mg/dL (2.5-4.9); Potassium 3.9 mmol/L (3.5-5.1); Protein, Total 5.5 g/dL (6.4-8.2)
[2019-09-20] MEDS ORDERED: POTASSIUM CL SA 10 MEQ TAB PO ONE (06:17)
[2019-09-20 07:55] LABS: Urine Appearance CLOUDY; Urine Bilirubin NEGATIVE (NEG); Urine Blood 1+ (NEG); Urine Color YELLOW; Urine Glucose NEGATIVE (NEG); Urine Protein NEGATIVE (NEG); Urine Specific Gravity 1.015 (1.005-1.030)
[2019-09-20] MEDS: THIAMINE HCL 100 MG TABLET PO SCH (08:20)
[2019-09-20] MEDS: PIPER/TAZO/NS 3.375gm 3.375 GM/100 ML BAG IVPB SCH ×2 (08:20→21:34)
[2019-09-20 08:52] LABS: Urine Microscopic Reflex ORDER UMIC
[2019-09-20 08:54] LABS: Urine Bacteria >50 /HPF (<20)
[2019-09-20 08:55] LABS: Urine Culture Reflex Order NOT NEEDED
[2019-09-20] MEDS ORDERED: POTASSIUM PHOS IN 0.9 % NACL 15 MMOL/250 ML BAG IV ONE (12:08)
--- NOTE | 2019-09-20 16:25 | PN ---
Date of Progress Note: 09/20/2019 Patient was admitted with severe rhabdo, electrolyte imbalance, severe hypokalemia. Physical Examination: Vital Signs: When I saw the patient, blood pressure 133/72, pulse of 91, afebrile. The patient had good urine output. Chest: Clear to auscultation. Heart: S1, S2 regular. Abdomen: Soft, nontender. Extremities: No edema. Laboratory Data: WBC 16, H and H 11.9/34, platelet 192. Sodium 146, potassium 3.9, bicarb 23, BUN 1 2, creatinine 1, GFR of 54, calcium 7.3, phos 1.4. CK down to 2100. Current Medications: The patient on include: 1.Levaquin. 2.Zosyn. 3.Hydralazine p.r.n. 4.Metoprolol 25 t.i.d. 5.Zofran. 6.Magnesium sulfate. 7.Normal saline with 40 of K. 8.Thiamine. Assessment And Plan: 1.Rhabdomyolysis secondary to fall. I am going to continue hydration for the patient and we will co ntinue to monitor. 2.Hypokalemia, resolved. We will continue to monitor. 3.Hypophosphatemia secondary to rhabdo. We will supplement. 4.Hypomagnesemia. We will supplement. 5.Hypertension, been controlled optimal. Continue current treatment. AMPARO Voice ID: [id number] Report ID: [id number]
--- NOTE | 2019-09-20 17:07 | PN ---
Date of Progress Note: 09/20/2019 Subjective: Patient seen and examined. Chart reviewed and case discussed with RN. Patient seems to be back to her baseline mental status. Feels better today. Medications: List reviewed. Physical Examination: Vital Signs: Temperature 98, heart rate 91, blood pressure 133/72, respirations 19, O2 of 95% on waldemar m air. General: Awake, alert, oriented x3. Elderly female, obese, ill-appearing. CV: S1, S2. Regular rate and rhythm. Peripheral pulses present. Respiratory: Moving air well bilaterally. No wheezing or stridor. No use of accessory muscles. Gastrointestinal: Abdomen is soft, nontender, nondistended. Positive bowel sounds. Extremities: No clubbing, cyanosis, or edema. No calf tenderness. Neuro: Cranial nerves 2 through 12 intact grossly. No focal neurological deficit. Speech is altere d, but comprehensible at baseline. Laboratory Data: Sodium 146, potassium 3.9, chloride 117, CO2 of 23, BUN 12, creatinine 1.01, glucos e 102, calcium 7.3, phosphorus 1.4, magnesium 2.4. CK level is 2143. Albumin is 2.3. WBC 16, H and H 11.9 and 34, platelets 192, neutrophils 86%. Blood cultures, no growth to date. Urine cultures g rowing out 4+ gram-negative rods. Assessment And Plan: A 68-year-old female with: 1.Sepsis with altered mental status. Patient is on IV antibiotics. Cultures growing out gram-negat juhi rods from the urine. Blood cultures pending. Patient's white blood cell count is still elevated , but trending down. 2.Acute cystitis with hematuria secondary to gram-negative rods. We will continue IV antibiotics an d follow up on final identification and sensitivity. 3.Acute metabolic encephalopathy secondary to sepsis, resolved. 4.Diastolic congestive heart failure. Continue to monitor I's and O's. 5.Hypokalemia, replaced. 6.Hypophosphatemia. We will replace and monitor. 7.Essential hypertension. Blood pressure is better controlled. 8.Elevated troponin level, likely due to sepsis. Doubt acute coronary syndrome. 9.Acute rhabdomyolysis, nontraumatic. CK level is trending down. Continue with IV fluids. Appreci ate Nephrology input. Plan: Will step down from ICU. Obtain PT evaluation. Patient may need [facility]. /ANGELIC Voice ID: [id number] Report ID: [id number]
[2019-09-21] MEDS: HEPARIN 5000 UNIT/ML 1 ML VIAL SQ SCH ×2 (00:27→07:26)
[2019-09-21 05:22] LABS: Albumin 2.3 g/dL (3.4-5.0); Phosphorus 2.1 mg/dL (2.5-4.9); Potassium 3.9 mmol/L (3.5-5.1)
[2019-09-21] MEDS: METOPROLOL TAR 25 MG TAB PO SCH ×2 (05:48→17:46)
[2019-09-21] MEDS: PANTOPRAZOLE 40MG TABLET PO SCH (05:48)
[2019-09-21] MEDS: NS KCL 40MEQ 40 MEQ/1,000 ML BAG IV SCH (06:44)
[2019-09-21] MEDS: THIAMINE HCL 100 MG TABLET PO SCH (07:26)
[2019-09-21 07:50] LABS: Absolute Lymphocytes (CBC) 1.1 K/uL (0.7-4.9); Basophils % 0.5 % (0-1.3); Hematocrit 36.4 % (36.0-45.0); MPV 8.9 fL (7.6-11.3); RBC Red Blood Cell Count 3.83 M/uL (3.86-4.86)
[2019-09-21] MEDS: PIPER/TAZO/NS 3.375gm 3.375 GM/100 ML BAG IVPB SCH ×2 (08:56→21:00)
[2019-09-21] MEDS ORDERED: NA CHLORIDE 0.9% 1,000 ML IV SCH (12:00)
[2019-09-21] MEDS ORDERED: POTASSIUM PHOS 10 MM in NA CHLORIDE 0.9% 250 ML IV ONE (12:19)
--- NOTE | 2019-09-21 15:38 | PN ---
Date of Progress Note: 09/21/2019 Subjective: Patient is seen and examined. Chart was reviewed and case was discussed with RN. Patient states she feels better overall, but is very weak, unable to even sit up in bed. Medications: List was reviewed. Physical Examination: Vital Signs: Temperature 98.5, heart rate 83, blood pressure 162/82, respirations 16, O2 93% on room air. General: Awake, alert, oriented x3. Elderly female, weak, ill appearing, obese , BMI 31. CV: S1, S2. Regular rate and rhythm. Peripheral pulses present. Respiratory: Moving air well bilaterally. No wheezing or stridor. No use of accessory muscles. Gastrointestinal: Abdomen is soft, nontender, nondistended. Positive bowel sounds. No guarding or rigidity. Extremities: No clubbing, cyanosis, or edema. Neurologic: Nonfocal. However, patient has generalized weakness. Laboratory Data: Sodium 144, potassium 3.9, chloride 116, CO2 23, BUN 11, creatinine 0.9, glucose 99, calcium 7.7. Phosphorus 2.1, magnesium 2. Albumin 2.3. WBC 14.9, H and H 12.7 and 36.4, platelets 223, neutrophils 84%. Blood cultures: No growth to date. Urine culture: Growing out E coli, resistant to fluoroquinolones, Unasyn, cefazolin, and ampicillin; sensitive to Zosyn. Assessment: A 68-year-old female with: 1. Sepsis with altered mental status, improved, now back to baseline. Sepsis is improving. White blood cell count is trending down, currently afebrile. Culture is growing out E coli from the urine. Blood cultures have been negative to date. 2. Acute cystitis with hematuria secondary to Escherichia coli. We will continue Zosyn. 3. Acute metabolic encephalopathy secondary to sepsis, resolved. 4. Generalized weakness. We will obtain PT evaluation. May need [facility] facility placement. 5. Chronic diastolic congestive heart failure. Continue to monitor I's and O' s, free fluid restriction, chronic. 6. Hypokalemia, replace. 7. Hypophosphatemia. We will replace and monitor. 8. Acute rhabdomyolysis, nontraumatic. We will continue to monitor CK level, and IV fluids have been adjusted. Appreciate Nephrology input. 9. Essential hypertension. Blood pressure is improved. 10. Elevated troponin level, likely due to sepsis. No chest pain. 11. Deep venous thrombosis prophylaxis: Addressed. Plan: PT evaluation. Continue with heparin for DVT prophylaxis. Monitor CK level. Likely will need [facility] facility placement. /ANGELIC Voice ID: [id number] Report ID: [id number] MTDD
--- NOTE | 2019-09-21 17:21 | PN ---
Date of Progress Note: 09/21/2019 Subjective: Patient was admitted with rhabdomyolysis, hypokalemia, hypomagnesemia, UTI. Physical Examination: Vital Signs: Blood pressure 162/82, pulse of 83. Patient had good urine output. Chest: Clear to auscultation. Heart: S1, S2. Regular. Abdomen: Soft, nontender. Extremities: No edema. Laboratory Data: WBC down to 14.9, H and H 12.7/36.4, platelets 224. Sodium 144, potassium 3.9, bic arb 23, BUN 11, creatinine 0.9, calcium 7.7, phos 2.1, magnesium of 2. Albumin 2.3, corrected calciu m is 9. Current Medications: The patient on include Zosyn, albuterol, hydralazine, metoprolol 25 b.i.d., hernandez toprazole, IV fluid. Assessment And Plan: 1.Rhabdomyolysis, recovering very well. We will discontinue IV fluid. We will monitor the patient. 2.Urinary tract infection secondary to Escherichia coli. Continue current antibiotic. The patient can be switched to Bactrim p.o. if okay with Primary. Also, the patient is allergic to Bactrim. We will continue on Zosyn for the time being. Can be switched to meropenem if needed for outpatient reg imen in the skilled nursing. 3.Hypokalemia, resolved. 4.Hypophosphatemia. I am going to continue supplement. We will start the patient on lisinopril and we will follow up. 5.Hypertension. Resume lisinopril. AMPARO Voice ID: [id number] Report ID: [id number]
[2019-09-21] MEDS ORDERED: TRAVOPROST 0.004% 2.5ML OPTH EACH EYE SCH (21:00)
[2019-09-21] MEDS ORDERED: APIXABAN 2.5 MG TABLET PO SCH (21:00)
[2019-09-21] MEDS ORDERED: DORZOLAMIDE HCL EACH EYE SCH (21:00)
[2019-09-21] MEDS ORDERED: TIMOLOL MALEAT EACH EYE SCH (21:00)
[2019-09-21] MEDS: lisinopriL 10 MG TAB PO SCH (21:28)
[2019-09-22 05:55] LABS: Albumin 2.3 g/dL (3.4-5.0); Magnesium 1.9 mg/dL (1.8-2.4); Phosphorus 2.7 mg/dL (2.5-4.9)
[2019-09-22] MEDS: METOPROLOL TAR 25 MG TAB PO SCH ×2 (06:08→18:05)
[2019-09-22] MEDS: PANTOPRAZOLE 40MG TABLET PO SCH (06:08)
[2019-09-22] MEDS ORDERED: LEVOTHYROXINE SOD 0.1 MG TAB PO SCH (06:30)
[2019-09-22] MEDS: PIPER/TAZO/NS 3.375gm 3.375 GM/100 ML BAG IVPB SCH ×2 (07:19→22:31)
[2019-09-22] MEDS: THIAMINE HCL 100 MG TABLET PO SCH (07:20)
[2019-09-22] MEDS ORDERED: SPIRONOLACTONE 25 MG TABLET PO SCH (09:00)
[2019-09-22 10:05] LABS: Absolute Lymphocytes (CBC) 1.3 K/uL (0.7-4.9); Basophils % 0.4 % (0-1.3); Hematocrit 40.9 % (36.0-45.0); Lymphocytes % 7.7 % (15.3-44.8); MPV 9.4 fL (7.6-11.3)
[2019-09-22] MEDS ORDERED: VANCOMYCIN/NS 1 gm 1 GM/250 ML BAG IVPB SCH (11:00)
[2019-09-22] MEDS: VANCOMYCIN 1.5 GM in NA CHLORIDE 0.9% 500 ML IVPB SCH (12:03)
[2019-09-22] MEDS: MELATONIN 5 MG TABLET PO PRN (22:29)
[2019-09-22] MEDS: lisinopriL 10 MG TAB PO SCH (22:29)
--- NOTE | 2019-09-23 03:46 | PN ---
Date of Progress Note: 09/22/2019 Chief Complaint: Electrolyte abnormalities including hypokalemia, hypomagnesemia, complicated by rhabdomyolysis and urinary tract infection. History Of Present Illness: Patient is a 68-year-old man admitted to the hospital because of generalized weakness. Patient has multiple medical problems including history of hypertension; CVA; status post brain aneurysm clip , complicated with subarachnoid bleeding; DVT, status post IVC filter placement. Patient was admitted to the hospital, was found to have urinary tract infection and rhabdomyolysis. Patient was started on IV fluids. Review of Systems: Denies fever, chills. Denies nausea, vomiting. Denies PND, orthopnea. Physical Examination: Lungs: Clear to auscultation bilaterally. Heart: S1, S2. Abdomen: Soft, benign. Extremities: No edema. Laboratory Data: Sodium 135, potassium 2.7, bicarbonate 25, BUN 11, creatinine 0.9. Hemoglobin 14.1, WBC 16.8, platelet count 295,000. Chemistries show sodium 142, potassium 4.0, chloride 111, CO2 25, BUN 12, creatinine 0.88, calcium 7.8, phosphorus 2.7. Impression And Plan: 1. Acute on chronic kidney injury. Creatinine level has improved and BUN remains stable, controlled. 2. Rhabdomyolysis. CK level is elevated. Evaluate CK level when blood pressure is controlled. 3. Hypernatremia. Gradually improving. Continue adequate hydration and IV fluids as needed. I spent 36 min including 25 min to coordinate care plan. NEEMA/ANGELIC Voice ID: [id number] Report ID: [id number] ABRIL
[2019-09-23] MEDS: PANTOPRAZOLE 40MG TABLET PO SCH (05:11)
[2019-09-23] MEDS: METOPROLOL TAR 25 MG TAB PO SCH ×2 (05:11→17:19)
[2019-09-23 06:21] LABS: Albumin 2.2 g/dL (3.4-5.0); Magnesium 2.2 mg/dL (1.8-2.4); Phosphorus 3.2 mg/dL (2.5-4.9); Potassium 3.7 mmol/L (3.5-5.1)
--- NOTE | 2019-09-23 08:08 | ECHO ---
HEIGHT: 5 ft 4 in WEIGHT: 183 lb 11.2 oz DATE OF STUDY: 09/22/[address]: Shawna Lau MD 2-DIMENSIONAL: YES M.MODE: YES DOPPLER: YES COLOR FLOW: YES TDS: YES PORTABLE: NO DEFINITY: NO BUBBLE STUDY: NO DIAGNOSIS: SUPRAVENTRICULAR TACHYCARDIA CARDIAC HISTORY: CATHERIZATION: NO SURGERY: NO PROSTHETIC VALVE: NO PACEMAKER: NO MEASUREMENTS (cm) DIASTOLIC (NORMALS) SYSTOLIC (NORMALS) IVSd 0.9 (0.6-1.2) LA Diam (1.9-4.0) LVEF 78% LVIDd 2.5 (3.5-5.7) LVIDs 1.4 (2.0-3.5) %FS 45% LVPWd 1.1 (0.6-1.2) Ao Diam 3.2 (2.0-3.7) 2 DIMENSIONAL ASSESSMENT: RIGHT ATRIUM: NORMAL LEFT ATRIUM: NORMAL RIGHT VENTRICLE: NORMAL LEFT VENTRICLE: NORMAL TRICUSPID VALVE: NORMAL MITRAL VALVE: NORMAL PULMONIC VALVE: NORMAL AORTIC VALVE: NORMAL PERICARDIAL EFFUSION: NONE AORTIC ROOT: NORMAL LEFT VENTRICULAR WALL MOTION: NORMAL DOPPLER/COLOR FLOW: NORMAL COMMENTS: NORMAL 2D ECHOCARDIOGRAM WITH DOPPLER. TECHNOLOGIST: Olman TUBBS
[2019-09-23] MEDS: THIAMINE HCL 100 MG TABLET PO SCH (09:00)
[2019-09-23] MEDS: PIPER/TAZO/NS 3.375gm 3.375 GM/100 ML BAG IVPB SCH (09:00)
[2019-09-23] MEDS: VANCOMYCIN 1.5 GM in NA CHLORIDE 0.9% 500 ML IVPB SCH (11:00)
--- NOTE | 2019-09-23 15:37 | P.PN ---
Subjective Date of Service: 09/23/19 Subjective: No new changes, Doing well Patient denies any complain today. She denies any shortness of breath. Her oxygen saturation is 92% on room air. WBC has decreased to 16.8. Noted an increase in her serum creatinine to 1.88. Patient states she ambulated with a walker and during physical therapy. Physical Examination - Vital Signs Temperature: 98.1 F Blood Pressure: 113/64 Pulse: 88 Respirations: 26 Pulse Ox (%): 93 - Physical Exam General: Alert, In no apparent distress, Oriented x3 HEENT: Atraumatic, Normocephalic Neck: Supple, JVD not distended Respiratory: Clear to auscultation bilaterally, Normal air movement Cardiovascular: No edema, Regular rate/rhythm, Normal S1 S2 Gastrointestinal: Normal bowel sounds, Soft and benign, Non-distended, No tenderness Musculoskeletal: No swelling, No erythema Integumentary: No rashes Neurological: Normal speech Assessment And Plan - Current Problems (Diagnosis) (1) Acute cystitis without hematuria Current Visit: Yes Status: Acute (2) Acute metabolic encephalopathy Current Visit: Yes Status: Acute (3) Acute renal injury Onset Date: 11/13/16 Current Visit: No Status: Acute (4) Sepsis Onset Date: 11/13/16 Current Visit: No Status: Acute (5) Chronic diastolic heart failure Current Visit: Yes Status: Chronic (6) Elevated troponin Current Visit: Yes Status: Acute (7) Rhabdomyolysis Current Visit: Yes Status: Acute (8) Essential hypertension Current Visit: Yes Status: Chronic - Plan Patient has improved clinically. She is tolerating room air with good oxygen saturated. She has been afebrile. Urine culture is growing E. coli. Vancomycin discontinued due to concern for vancomycin induced nephropathy given increase in serum creatinine. Will discontinue IV Zosyn and start oral cefuroxime based on antibiotics sensitivity. Monitor renal function. Nephrology is following. Their input are appreciated. Serial CK. Monitor CBC. PT and OT.
--- NOTE | 2019-09-23 16:37 | PN ---
Date of Progress Note: 09/23/2019 Subjective: Patient was admitted with rhabdomyolysis. Today, kidney function has declined. Physical Examination: Vital Signs: Blood pressure 121/69, pulse of 73. Patient had good urine output. Chest: Clear to auscultation. Heart: S1, S2 regular. Abdomen: Soft, nontender. Extremities: Plus edema. Laboratory Data: WBC 16.8, H and 14.1/40, platelets of 295. Sodium 143, potassium 3.7, bicarb 26, B UN 30, creatinine 1.8, GFR 26, calcium 8.3, magnesium 2.2, phosphorus 3.2, albumin 2.2, corrected mariusz cium is 9.5. Urine culture growing E coli sensitive to Zosyn. Current Medications: Zosyn, vancomycin, hydralazine, metoprolol 50, pantoprazole. Assessment And Plan: 1.Acute kidney injury, unknown etiology, possible secondary to BREANNE inhibitor and vanc. We will send for a vanc trough. I am going to discontinue Lasix, discontinue lisinopril and we will start the pa tient on IV fluid and we will monitor the patient closely. I am going to repeat CK for the patient t o rule out any rebound on her rhabdo and we will follow up. 2.Hypertension with acute kidney injury. I am going to hold the lisinopril. Hold the Lasix for the time being. 3.Urinary tract infection secondary to Escherichia coli. Discontinue vancomycin. Continue Zosyn, d ose appropriate. AMPARO Voice ID: [id number] Report ID: [id number]
[2019-09-23] MEDS: NA CHLORIDE 0.9% 1,000 ML IV SCH (17:20)
[2019-09-23] MEDS: MELATONIN 5 MG TABLET PO PRN (21:22)
[2019-09-23] MEDS: CEFUROXIME 250 MG TAB PO SCH (21:22)
[2019-09-24] MEDS: PANTOPRAZOLE 40MG TABLET PO SCH (05:58)
[2019-09-24] MEDS: METOPROLOL TAR 25 MG TAB PO SCH ×2 (05:58→18:28)
[2019-09-24 06:23] LABS: Basophils % 0.8 % (0-1.3); Lymphocytes % 9.1 % (15.3-44.8); MPV 9.6 fL (7.6-11.3); RBC Red Blood Cell Count 3.57 M/uL (3.86-4.86)
[2019-09-24 06:31] LABS: Magnesium 2.3 mg/dL (1.8-2.4); Potassium 3.4 mmol/L (3.5-5.1)
[2019-09-24] MEDS ORDERED: MORPHINE 4 MG/ML SYR IV PRN ×2 (07:11→07:12)
[2019-09-24] MEDS: NA CHLORIDE 0.9% 1,000 ML IV SCH ×3 (09:00→21:59)
[2019-09-24] MEDS ORDERED: POTASSIUM 25 MEQ EFFERV TAB PO ONE (09:00)
[2019-09-24] MEDS: CEFUROXIME 250 MG TAB PO SCH ×2 (09:32→21:59)
[2019-09-24] MEDS: THIAMINE HCL 100 MG TABLET PO SCH (09:32)
--- NOTE | 2019-09-24 12:48 | RAD REPORT ---
EXAM DESCRIPTION: RAD - Chest Single View - 09/24/2019 12:36 pm CLINICAL HISTORY: CXR Chest pain. COMPARISON: Chest Single View dated 09/19/2019; Chest Pa And Lat (2 Views) dated 11/17/2016; Chest Si ngle View dated 11/15/2016; Chest Single View dated 11/13/2016; Head Brain Wo Cont dated 09/19/2019 FINDINGS: Portable technique limits examination quality. Calcified granuloma is present in the left lung base benign. The lungs are otherwise clear. The heart is mildly enlarged in size. Shunt tubing traverses the right chest. IMPRESSION: No acute intrathoracic process suspected.
--- NOTE | 2019-09-24 14:15 | RAD REPORT ---
EXAM DESCRIPTION: US - Renal Ultrasound-Complete - 09/24/2019 2:03 pm CLINICAL HISTORY: . Acute renal insufficiency COMPARISON: 2018 FINDINGS: The right kidney measures 11 cm with a normal echotexture. The left kidney measures 11 cm with a normal echotexture. Hydronephrosis is not seen. Small parapelvic cysts are without obvious change The bladder is decompressed and not well imaged IMPRESSION: Small bilateral parapelvic cysts
--- NOTE | 2019-09-24 14:17 | P.PN ---
Subjective Date of Service: 09/24/19 Chief Complaint: Admitted for fall and confused Patient denies any complain today. She was seen ambulating with a walker during physical therapy session. Her oxygen saturation is 92% on room air. WBC continued to trend down. Noted further increase in her serum creatinine to 2.5. Patient states she ambulated with a walker and during physical therapy. Physical Examination - Vital Signs Temperature: 98.2 F Blood Pressure: 131/84 Pulse: 72 Respirations: 26 Pulse Ox (%): 93 - Physical Exam General: Alert, In no apparent distress, Oriented x3 HEENT: Mucous membr. moist/pink Neck: Supple, JVD not distended Respiratory: Clear to auscultation bilaterally, Normal air movement Cardiovascular: No edema, Regular rate/rhythm, Normal S1 S2 Capillary refill: <2 Seconds Gastrointestinal: Normal bowel sounds, Soft and benign, Non-distended, No tenderness Musculoskeletal: No swelling Integumentary: No rashes Neurological: Normal speech, Normal strength at 5/5 x4 extr Assessment And Plan - Current Problems (Diagnosis) (1) Acute cystitis without hematuria Current Visit: Yes Status: Acute (2) Acute metabolic encephalopathy Current Visit: Yes Status: Acute (3) Acute renal injury Onset Date: 11/13/16 Current Visit: No Status: Acute (4) Sepsis Onset Date: 11/13/16 Current Visit: No Status: Acute (5) Chronic diastolic heart failure Current Visit: Yes Status: Chronic (6) Elevated troponin Current Visit: Yes Status: Acute (7) Rhabdomyolysis Current Visit: Yes Status: Acute (8) Essential hypertension Current Visit: Yes Status: Chronic - Plan Patient has improved clinically. Vancomycin and Zosyn discontinued due to concern for antibiotic induced nephropathy given increase in serum creatinine. Continue oral cefuroxime based on antibiotics sensitivity. Renal ultrasound requested given increase in serum creatinine today. Continue IV hydration. Nephrology is following and managing. CK level has normalized. Continue PT and OT.
--- NOTE | 2019-09-25 03:37 | PN ---
Date of Progress Note: 09/24/2019 Subjective: Patient was admitted with rhabdomyolysis, the kidney function started being deteriorated. Physical Examination: Vital Signs: When I saw the patient, blood pressure 120/84, pulse of 102, afebrile. Chest: Clear to auscultation. Heart: S1, S2, regular. Abdomen: Soft. Nontender. Extremities: +1 edema. Laboratory Data: WBC 11.3, H and H 11.8 and 34.0, platelets 239. Sodium 144, potassium 3.4, bicarbonate 24, BUN 28, creatinine 2.5, calcium 8.2, phosphorus 4 , magnesium 2.3, albumin 2. Corrected calcium is 9.8. Current Medications: The patient is on include: 1. Hydralazine. 2. Metoprolol 50. 3. Ceftriaxone. 4. IV fluid. 5. Melatonin. 6. Pantoprazole. Assessment And Plan: 1. Acute kidney injury, unknown etiology. I am going to go ahead and send for workup increase normal saline to 100. We are going to send for urine Eos to rule out any eosinophilia or AIN. If the kidney function did not improve, patient may need renal replacement therapy and may need kidney biopsy. 2. Urinary tract infection. Given the worsening kidney function and with the possibility that patient may need kidney biopsy, I again repeated the urinalysis to see if it has cleared up. Continue current antibiotic. 3. Rhabdomyolysis, resolved. 4. Dementia. Continue follow up with primary. AMPARO Voice ID: [id number] Report ID: [id number] ABRIL
[2019-09-25] MEDS: PANTOPRAZOLE 40MG TABLET PO SCH (06:15)
[2019-09-25] MEDS: METOPROLOL TAR 25 MG TAB PO SCH ×2 (06:15→16:17)
[2019-09-25] MEDS: NA CHLORIDE 0.9% 1,000 ML IV SCH ×3 (06:16→16:17)
[2019-09-25 06:40] LABS: Absolute Lymphocytes (CBC) 0.9 K/uL (0.7-4.9); Basophils % 0.7 % (0-1.3); Hematocrit 32.6 % (36.0-45.0); Lymphocytes % 7.6 % (15.3-44.8); MPV 9.4 fL (7.6-11.3); RBC Red Blood Cell Count 3.43 M/uL (3.86-4.86)
[2019-09-25 06:48] LABS: Phosphorus 3.4 mg/dL (2.5-4.9); Potassium 3.5 mmol/L (3.5-5.1); Thyroid Stimulating Hormone 1.82 uIU/mL (0.360-3.740)
[2019-09-25] MEDS: CEFUROXIME 250 MG TAB PO SCH ×2 (08:55→21:27)
[2019-09-25] MEDS: THIAMINE HCL 100 MG TABLET PO SCH (08:55)
[2019-09-25] MEDS ORDERED: POTASSIUM CL SA 10 MEQ TAB PO ONE (09:00)
[2019-09-25] MEDS ORDERED: POTASSIUM 25 MEQ EFFERV TAB PO ONE (11:17)
[2019-09-25 11:28] LABS: Urine Appearance CLOUDY; Urine Bilirubin NEGATIVE (NEG); Urine Blood TRACE (NEG); Urine Color YELLOW; Urine Glucose NEGATIVE (NEG); Urine Protein NEGATIVE (NEG); Urine Urobilinogen 0.2 mg/dL (0.2-1.0); Urine pH 5.5 (5.0-7.0)
[2019-09-25 11:32] LABS: Urine Protein/Creatinine Ratio 0.42 ratio (<0.15)
[2019-09-25 11:50] LABS: Urine Microscopic Reflex ORDER UMIC
[2019-09-25 12:03] LABS: Urine Bacteria 20-50 /HPF (<20); Urine Culture Reflex Order REFLEXED; Urine Mucus 1+ /HPF (NONE SEEN); Urine RBC <5 /HPF (NONE SEEN)
[2019-09-25 13:50] LABS: Urine Yeast FEW (NONE SEEN)
--- NOTE | 2019-09-25 15:58 | PN ---
Date of Progress Note: 09/25/2019 Subjective: The patient was admitted with rhabdomyolysis, UTI, developed acute kidney injury. Patie nt's workup is still pending yesterday. We will increase IV fluids. Kidney function started improvi ng. Physical Examination: Vital Signs: Blood pressure 154/92, pulse of 75. Patient had good urine output of 1500. Chest: Clear to auscultation. Heart: S1, S2. Regular. Abdomen: Soft, nontender. Extremities: Plus edema. Laboratory Data: H and H 11.5/32.6. Sodium 145; potassium 3.5; bicarb 24; BUN 34; creatinine 2.2, t rending down; GFR of 21; calcium 8.3. Phosphorus 3.4, albumin of 2. Serum protein electrophoresis i s still pending. TSH 1.8. Serology still pending. Urine eosinophil still pending. Current Medications: The patient on its include: 1.Cefuroxime. 2.Metoprolol. 3.Zofran. 4.Pantoprazole. 5.IV fluid. 6.Thiamin. Assessment And Plan: 1.Acute kidney injury, unknown etiology. Kidney function started to be improved. Normal size kidne y without any hydronephrosis. I am going to continue current IV fluid. We will plan tomorrow to dis continue IV fluids, then watch for another day if kidney function continue to improve. At that time, patient okay from the renal standpoint for discharge planning. 2.Hypokalemia. I will supplement. 3.Rhabdomyolysis, has been resolved. 4.Urinary tract infection secondary to Escherichia coli. Continue current antibiotic. We will foll ow up with the primary. AMPARO Voice ID: [id number] Report ID: [id number]
--- NOTE | 2019-09-25 16:23 | P.PN ---
Subjective Date of Service: 09/25/19 Chief Complaint: Admitted for fall and confused Subjective: No new changes Patient denies any complain today. Her serum creatinine has started trending down. Oral intake is improving. She is tolerating physical therapy. Physical Examination - Vital Signs Temperature: 97 F Blood Pressure: 174/91 Pulse: 93 Respirations: 18 Pulse Ox (%): 95 - Physical Exam General: Alert, In no apparent distress HEENT: Mucous membr. moist/pink Neck: Supple, JVD not distended Respiratory: Clear to auscultation bilaterally Cardiovascular: Regular rate/rhythm, Normal S1 S2 Gastrointestinal: Normal bowel sounds, Soft and benign, Non-distended, No tenderness Integumentary: No rashes Neurological: Normal speech, Normal strength at 5/5 x4 extr Assessment And Plan - Current Problems (Diagnosis) (1) Acute cystitis without hematuria Current Visit: Yes Status: Acute (2) Acute metabolic encephalopathy Current Visit: Yes Status: Acute (3) Acute renal injury Onset Date: 11/13/16 Current Visit: No Status: Acute (4) Sepsis Onset Date: 11/13/16 Current Visit: No Status: Acute (5) Chronic diastolic heart failure Current Visit: Yes Status: Chronic (6) Elevated troponin Current Visit: Yes Status: Acute (7) Rhabdomyolysis Current Visit: Yes Status: Acute (8) Essential hypertension Current Visit: Yes Status: Chronic - Plan Patient has improved clinically. Continue oral cefuroxime based on antibiotics sensitivity. Follow repeat urine culture result. Renal ultrasound shows no acute changes. Continue IV hydration. Nephrology is following and managing. Continue PT and OT. Disposition to skilled rehab on discharge.
[2019-09-25] MEDS: HYDRALAZINE HCL 20 MG/ML VIAL IV PRN (17:43)
[2019-09-25] MEDS: MELATONIN 5 MG TABLET PO PRN (21:27)
[2019-09-26] MEDS: HYDRALAZINE HCL 20 MG/ML VIAL IV PRN ×2 (01:50→09:49)
[2019-09-26] MEDS: NA CHLORIDE 0.9% 1,000 ML IV SCH ×2 (04:00→05:44)
[2019-09-26] MEDS: METOPROLOL TAR 25 MG TAB PO SCH (05:44)
[2019-09-26 06:17] LABS: Absolute Lymphocytes (CBC) 0.9 K/uL (0.7-4.9); Hematocrit 34.6 % (36.0-45.0); Lymphocytes % 7.6 % (15.3-44.8); MPV 9.1 fL (7.6-11.3); RBC Red Blood Cell Count 3.67 M/uL (3.86-4.86)
[2019-09-26 06:30] LABS: Phosphorus 2.9 mg/dL (2.5-4.9); Potassium 3.5 mmol/L (3.5-5.1)
[2019-09-26] MEDS ORDERED: POTASSIUM 25 MEQ EFFERV TAB PO ONE (07:30)
[2019-09-26] MEDS: CEFUROXIME 250 MG TAB PO SCH ×2 (08:52→20:42)
[2019-09-26] MEDS: THIAMINE HCL 100 MG TABLET PO SCH (08:52)
[2019-09-26 09:32] VITALS: O2SAT 95
[2019-09-26 12:08] LABS: Rheumatoid Factor NEG (NEG)
[2019-09-26] MEDS ORDERED: ALBUTEROL 2.5 MG/3 ML NEB SOL NEB PRN (13:00)
--- NOTE | 2019-09-26 13:47 | P.PN ---
Subjective Date of Service: 09/26/19 Chief Complaint: Admitted for fall and confused Subjective: Improving Pt admitted with Bere and Rhabdo today Cr improving will dc Viramontes , TOV can be discharged from nephrology point of view Physical Examination - Vital Signs Temperature: 98.9 F Blood Pressure: 178/92 Pulse: 79 Respirations: 18 Pulse Ox (%): 94 - Physical Exam General: Alert, In no apparent distress, Oriented x1 HEENT: Atraumatic Neck: Supple, Without JVD or thyroid abnormality Respiratory: Clear to auscultation bilaterally, Normal air movement Cardiovascular: No edema, Regular rate/rhythm, Normal S1 S2, No gallops, No rubs , No murmurs Gastrointestinal: Normal bowel sounds, Soft and benign Assessment And Plan - Plan Acute kidney injury imprving likely due to rhabdomyolysis cr improving renal dose meds US: no hydro rhabdomyolysis resolved UTI cont Abx HTN cont current meds
--- NOTE | 2019-09-26 17:34 | P.PN ---
Subjective Date of Service: 09/26/19 Chief Complaint: Admitted for fall and confused Family reports patient is more confused today. Her serum creatinine continued to trend down. She is tolerating physical therapy. Physical Examination - Vital Signs Temperature: 98.9 F Blood Pressure: 178/92 Pulse: 79 Respirations: 18 Pulse Ox (%): 94 - Physical Exam General: In no apparent distress, Other (Awake) HEENT: Mucous membr. moist/pink Neck: Supple, JVD not distended Respiratory: Clear to auscultation bilaterally, Normal air movement Cardiovascular: No edema, Regular rate/rhythm, Normal S1 S2 Gastrointestinal: Normal bowel sounds, Soft and benign, No tenderness Musculoskeletal: No swelling Integumentary: No rashes Neurological: Normal speech, Normal strength at 5/5 x4 extr Assessment And Plan - Current Problems (Diagnosis) (1) Acute cystitis without hematuria Current Visit: Yes Status: Acute (2) Acute metabolic encephalopathy Current Visit: Yes Status: Acute (3) Acute renal injury Onset Date: 11/13/16 Current Visit: No Status: Acute (4) Sepsis Onset Date: 11/13/16 Current Visit: No Status: Acute (5) Chronic diastolic heart failure Current Visit: Yes Status: Chronic (6) Elevated troponin Current Visit: Yes Status: Acute (7) Rhabdomyolysis Current Visit: Yes Status: Acute (8) Essential hypertension Current Visit: Yes Status: Chronic - Plan Repeat urine culture reviewed and reports no significant growth. Continue oral cefuroxime. Patient to complete 7 days of treatment. Renal ultrasound shows no acute changes. Continue IV fluid Nephrology is following and managing. Monitor renal function. Continue PT and OT. Resume dementia medications Antihypertensives Disposition to skilled rehab on discharge.
[2019-09-26] MEDS: ENSURE HIGH PROTEIN 237 ML CAN PO SCH (20:41)
[2019-09-26] MEDS: MELATONIN 5 MG TABLET PO PRN (20:42)
[2019-09-26] MEDS: METOPROLOL TAR 50 MG TAB PO SCH (20:42)
[2019-09-26] MEDS ORDERED: DONEPEZIL HCL 5 MG TAB PO SCH (21:00)
[2019-09-27 05:51] LABS: Albumin 1.9 g/dL (3.4-5.0); Phosphorus 3.5 mg/dL (2.5-4.9); Potassium 3.7 mmol/L (3.5-5.1)
[2019-09-27] MEDS ORDERED: PANTOPRAZOLE 40MG TABLET PO SCH (07:30)
[2019-09-27] MEDS ORDERED: AMLODIPINE 5 MG TAB PO SCH (09:00)
[2019-09-27] MEDS ORDERED: POTASSIUM 25 MEQ EFFERV TAB PO ONE (09:00)
[2019-09-27] MEDS ORDERED: HOME MED 1 EA UNK (Donepezil Hcl [Aricept] 1 TAB) PO SCH (09:00)
[2019-09-27] MEDS: THIAMINE HCL 100 MG TABLET PO SCH (09:14)
[2019-09-27] MEDS: METOPROLOL TAR 50 MG TAB PO SCH (09:15)
[2019-09-27] MEDS: CEFUROXIME 250 MG TAB PO SCH (09:15)
[2019-09-27] MEDS: ENSURE HIGH PROTEIN 237 ML CAN PO SCH (09:16)
--- NOTE | 2019-09-27 11:27 | P.DS ---
Admission Date: 09/19/19 Discharge Date: 09/27/19 Disposition: TRANSFER TO LONGTERM Discharge Condition: GOOD Reason for Admission: Admitted for fall and confused Consultations: Nephrology Procedures: None - Problems (1) Acute cystitis without hematuria Current Visit: Yes Status: Acute (2) Acute metabolic encephalopathy Current Visit: Yes Status: Acute (3) Acute renal injury Onset Date: 11/13/16 Current Visit: No Status: Acute (4) Sepsis Onset Date: 11/13/16 Current Visit: No Status: Acute (5) Chronic diastolic heart failure Current Visit: Yes Status: Chronic (6) Elevated troponin Current Visit: Yes Status: Acute (7) Rhabdomyolysis Current Visit: Yes Status: Acute (8) Essential hypertension Current Visit: Yes Status: Chronic Brief History of Present Illness: 5-year-old woman with a history of brain aneurysms status post clips was transferred from an assisted living facility to the emergency department due to a fall. The patient reported generalized weakness. In the ED, patient was noted to be confused, she was septic, UA suggesting the presence of UTI. Blood work also demonstrated acute renal failure and rhabdomyolysis. The patient was admitted to the intensive care unit for further management. Hospital Course: Patient was aggressively treated with IV hydration, IV Levaquin and Zosyn and later changed to vancomycin and Zosyn. She responded to treatment, vitals were stable and she was subsequently transferred to the medical floor to continue treatment. Her renal function slowly responded to IV hydration. Renal ultrasound was unremarkable. Nephrology was consulted to assist with management. Her mental status gradually improved as a UTI got treated. Urine culture grew E. coli. Blood cultures yielded no growth. Her serum creatinine trended down but at that point in time got elevated again and was suspected to have vancomycin induced nephropathy. Antibiotics was scale down to oral Cefuroxime, hydration was continued until her serum creatinine trended down again. Currently renal function continued to improve. She has good urine output. The UTI has adequately being treated. Her mental status is back to baseline. Patient is considered clinically stable for discharge. He is discharged for 2 more days of Cefuroxime to complete 10 days of treatment. Would recommend her renal function panel be checked within the course of next week to make sure her serum creatinine continue to trend down. Vital Signs/Physical Exam: Temp Pulse Resp BP Pulse Ox 98.1 F 91 H 18 175/85 H 96 09/27/19 08:00 09/27/19 09:15 09/27/19 08:00 09/27/19 09:15 09/27/19 08:00 General: Alert, In no apparent distress, Oriented x3 HEENT: Mucous membr. moist/pink Neck: Supple, JVD not distended Respiratory: Clear to auscultation bilaterally, Normal air movement Cardiovascular: No edema, Regular rate/rhythm, Normal S1 S2 Gastrointestinal: Normal bowel sounds, Soft and benign, Non-distended, No tenderness Musculoskeletal: No swelling Integumentary: No rashes Neurological: Normal speech Laboratory Data at Discharge: WBC 12.3 K/uL (4.3-10.9) H 09/26/19 05:54 Hgb 11.9 g/dL (12.0-15.0) L 09/26/19 05:54 Hct 34.6 % (36.0-45.0) L 09/26/19 05:54 Plt Count 271 K/uL (152-406) 09/26/19 05:54 PT 16.0 SECONDS (9.5-12.5) H 09/19/19 01:40 INR 1.37 09/19/19 01:40 Sodium 145 mmol/L (136-145) 09/27/19 05:07 Potassium 3.7 mmol/L (3.5-5.1) 09/27/19 05:07 BUN 30 mg/dL (7-18) H 09/27/19 05:07 Creatinine 1.83 mg/dL (0.55-1.3) H 09/27/19 05:07 Glucose 93 mg/dL (74-106) 09/27/19 05:07 Phosphorus 3.5 mg/dL (2.5-4.9) 09/27/19 05:07 Magnesium 2.3 mg/dL (1.8-2.4) 09/24/19 05:36 Total Bilirubin 0.8 mg/dL (0.2-1.0) 09/20/19 05:15 AST 80 U/L (15-37) H 09/20/19 05:15 ALT 35 U/L (12-78) 09/20/19 05:15 Alkaline Phosphatase 63 U/L (45-117) 09/20/19 05:15 Troponin I < 0.02 ng/mL (0.0-0.045) 09/22/19 11:07 Home Medications: Alendronate [Fosamax*] 70 mg PO SEECOM 09/21/19 Amlodipine [Norvasc*] 1 tab PO DAILY 09/21/19 Metoprolol Tartrate [Lopressor] 50 mg PO BID 09/21/19 Pantoprazole [Protonix Tab*] 1 tab PO DAILY 09/21/19 Donepezil HCl [Aricept] 1 tab PO DAILY 09/22/19 Cefuroxime [Ceftin*] 250 mg PO BID 2 Days #4 tab 09/27/19 Ensure High Protein 237 ml PO BID can 09/27/19 Melatonin 10 mg PO BEDTIME PRN PRN tablet 09/27/19 Thiamine HCl [Vitamin B-1*] 100 mg PO DAILY tablet 09/27/19 New Medications: Cefuroxime [Ceftin*] 250 mg PO BID 2 Days #4 tab Diet: AHA Activity: Fall precautions Followup: Anuj Herrera DO [ACTIVE - CAN ADMIT] - 1 Week Time spent managing pt's care (in minutes): 42
[2019-09-27] MEDS: HYDRALAZINE HCL 20 MG/ML VIAL IV PRN (12:14)
[2019-09-27 12:40] VITALS: TEMP 98.8
[2019-09-27 13:56] VITALS: BP 150/80
[2019-09-27 18:18] LABS: Hepatitis C Virus RNA (PCR)log <1.18 log IU/mL
--- NOTE | 2019-09-28 06:52 | PN ---
Date of Progress Note: 09/27/2019 Chief Complaint: Acute kidney injury. Renal function has been improving. Viramontes catheter was remove d. Review of Systems: Denies fever, chills. Physical Examination: Lungs: Clear to auscultation bilaterally. Heart: S1, S2. Abdomen: Soft, benign. Extremities: No edema. Impression And Plan: 1.Acute kidney injury, improving. Monitor electrolytes. Patient developed acute kidney injury seco ndary to rhabdomyolysis. Continue renal dose of medication. 2.Rhabdomyolysis, resolved. 3.Urinary tract infection. Continue treatment according to urine culture. 4.Hypertension. Continue current medication. EB/MODL Voice ID: [id number] Report ID: [id number]
[2019-09-28 20:02] LABS: HBsAG Nonreactive (Nonreactive)
[2019-09-29 05:03] LABS: Albumin, (SPE) 2.3 g/dL (3.8-4.8); Alpha-1-Globulins 0.5 g/dL (0.2-0.3); Alpha-2-Globulins 0.9 g/dL (0.5-0.9); Gamma Globulins 0.8 g/dL (0.8-1.7); INTERPRETATION REPORT
[2019-09-29 11:37] LABS: Vitamin D 1,25-Dihydroxy Total 23 pg/mL (18-72); Vitamin D,1,25-OH2, D2 <8 pg/mL
[2019-09-30 18:34] LABS: Scleroderma Antibody (Scl-70) <1.0
--- NOTE | 2019-10-08 16:59 | PN ---
Date of Progress Note: 09/22/2019 Subjective: Patient is seen and examined. Chart reviewed. Case discussed with RN. Medications: List reviewed. Physical Examination: Vital Signs: Temperature 98, heart rate 75, blood pressure is 145/76, respirations 20, O2 of 92% on room air. General: Awake, alert, oriented x3, ill-appearing elderly female. CV: S1, S2. Regular rate and rhythm. Respiratory: Moving air well bilaterally. No wheezing. Gastrointestinal: Abdomen is soft, nontender, nondistended. Positive bowel sounds. Extremities: No clubbing, cyanosis, or edema. Neurologic: Nonfocal. Overall generalized weakness present. Laboratory Data: Sodium 142, potassium 4, chloride 111, CO2 of 25, BUN 12, creatinine 0.88, glucose 95, calcium 7.8. Phosphorus 2.7, magnesium 1.9. CK level 41. Albumin 2.3. WBC 16.8, H and H 14.1 and 40.9, platelets 295, neutrophils 85%. Assessment And Plan: A 68-year-old female with: 1.Sepsis along with metabolic encephalopathy, improving. WBC is trending up. Cultures positive for Escherichia coli from the urine. No growth from the blood cultures. 2.Acute cystitis with hematuria secondary to Escherichia coli. Continue antibiotics. 3.Acute metabolic encephalopathy secondary to sepsis, resolved. 4.Generalized weakness. Continue PT eval. 5.Chronic diastolic congestive heart failure, stable. 6.Hypokalemia, replaced. 7.Hypophosphatemia. Replace and monitor. 8.Acute rhabdomyolysis. CK level trending down. This is nontraumatic. Nephrology on board. 9.Essential hypertension, stable. 10.Elevated troponin level, likely secondary to sepsis. No complaints of chest pain. 11.Deep vein thrombosis prophylaxis, addressed. SA/MODL Voice ID: [id number] Report ID: [id number]
== END 2019-09-27 13:10 | DRG 871 ==
LOC: ER 23:42 → ERHOLD 09-19 03:32 → 3RD-ICU 09-19 04:54 → 4TH 09-20 09:30
PROVIDERS: ADMIT Internal Medicine; ATTEND Internal Medicine
DX: A41.9 Sepsis, unspecified organism (principal); G93.41 Metabolic encephalopathy; N30.00 Acute cystitis without hematuria; I50.32 Chronic diastolic (congestive) heart failure; M62.82 Rhabdomyolysis; N17.9 Acute kidney failure, unspecified; B96.20 Unspecified Escherichia coli [E. coli] as the cause of diseases classified elsewhere; I11.0 Hypertensive heart disease with heart failure; E87.6 Hypokalemia; E83.39 Other disorders of phosphorus metabolism; R79.89 Other specified abnormal findings of blood chemistry; E83.42 Hypomagnesemia; Z86.73 Personal history of transient ischemic attack (TIA), and cerebral infarction without residual deficits; Z88.2 Allergy status to sulfonamides
CPT/HCPCS: 36415; 70450; 71045; 76770; 80048; 80053; 80069; 80076; 80202; 81003; 81015; 82550; 82553; 82570; 82652; 83520; 83605; 83735; 83880; 84132; 84156; 84165; 84443; 84484; 85025; 85610; 86021; 86038; 86160; 86225; 86235; 86317; 86430; 86704; 86706; 87040; 87077; 87086; 87088; 87186; 87340; 87522; 88108; 93005; 93306; 94760; 96365; 96366; 97110; 97112; 97116; 97161; 97530; 99285; J0360; J1644; J2405; J2543; J3475; J7030; J7040

== ENCOUNTER 2019-12-12 15:34 | Emergency (ER) | payer OTHER ==
--- OUTSIDE RECORDS SUMMARY | 2019-12-12 15:36 | XMS REPORT ---
[...] Medications Results No Known Results Summary Purpose [employer]Clinical[employer]or[employer] Submission
--- OUTSIDE RECORDS SUMMARY | 2019-12-12 15:36 | XMS REPORT ---
[...] Status Dosage System Date Date Alendronate NDC 82068203485 70 MG Orally December Active TAKE ONE Sodium 28, WEEKLY 2019 Cholecalciferol ND 0 5000 UNIT Active 1 capsule Orally Once a day Losartan [facility] 03268799552 50 MG Orally Active 1 tablet Potassium Once a day Nystatin [facility] 91108434100 [id number] UNIT/ML Active 1 application Mouth/Throat to affected Four times a area day Spironolactone [facility] 51256060997 50 MG Orally Active 1 tablet with Once a day food Metoprolol [facility] 84525369488 50 MG Orally Active 1 tablet with Tartrate Twice a day food Triamcinolone [facility] 69598416735 0.1 % Active 1 application Acetonide Externally to affected Twice a day area Protonix [facility] 10884259059 40 MG Orally Active 1 tablet Once a day Potassium [facility] 30372159492 20 MEQ Orally March 07, Active 2 packets Chloride Once a day 2019 with food Amlodipine [facility] 95040570624 5 MG Orally Active 1 tablet Besylate Once a day Donepezil HCl [facility] 61893857140 10 MG Orally Active 1 tablet at Once a day bedtime Alendronate [facility] 89598953978 70 MG Orally March 07, Active 1 tablet Sodium once a week 2019 Ketoconazole [facility] 03409092224 2 % Externally Active 1 application twice a day to affected area Results No Known Results Summary Purpose eClinicalWorks Submission
--- NOTE | 2019-12-12 16:48 | RAD REPORT ---
EXAM DESCRIPTION: Carlitos Single View12/12/2019 4:19 pm CLINICAL HISTORY: Hypertension/swelling COMPARISON: 2018 FINDINGS: The lungs appear clear of acute infiltrate. The heart is borderline enlarged. A RADIOLOGY SPECIALIST shunt courses the right chest IMPRESSION: No acute abnormalities displayed
--- NOTE | 2019-12-12 17:01 | RAD REPORT ---
EXAM DESCRIPTION: USExtrem Venous W Compress Bil12/12/2019 4:49 pm CLINICAL HISTORY: Bilateral leg swelling COMPARISON: 2017 FINDINGS: Echogenic material consistent with thrombus is present within the right popliteal vein. Th e vein is not compressible Echogenic material consistent with thrombus is present within the left common femoral, left superfici al femoral and left popliteal veins. Little flow is seen. Veins are not compressible 4 x 1 centimeter Houston's cyst left leg IMPRESSION: Bilateral acute deep veinous thrombosis involving the legs 4.1 centimeter left Houston's cyst
[2019-12-12 17:38] LABS: Absolute Lymphocytes (CBC) 1.2 K/uL (0.7-4.9); Basophils % 0.8 % (0-1.3); MPV 8.5 fL (7.6-11.3); RBC Red Blood Cell Count 3.66 M/uL (3.86-4.86)
[2019-12-12 17:39] LABS: Protime INR 1.21
[2019-12-12 18:03] LABS: ALT/SGPT 10 U/L (12-78); AST/SGOT 17 U/L (15-37); Albumin 2.6 g/dL (3.4-5.0); Alkaline Phosphatase 99 U/L (45-117); BUN Blood Urea Nitrogen 24 mg/dL (7-18); Bicarbonate 24 mmol/L (21-32); Bilirubin Direct 0.3 mg/dL (0-0.2); Bilirubin Total 0.8 mg/dL (0.2-1.0); Glucose Level 98 mg/dL (74-106); Magnesium 2.2 mg/dL (1.8-2.4); NT PRO-BNP 622 pg/mL (<125); Sodium Level 144 mmol/L (136-145); Troponin (Emerg Dept Use Only) < 0.02 ng/mL (0.0-0.045)
[2019-12-12 18:08] LABS: Potassium 2.9 mmol/L (3.5-5.1)
--- NOTE | 2019-12-12 18:53 | RAD REPORT ---
EXAM DESCRIPTION: CT - Chest For Pe Angio - 12/12/2019 6:26 pm CLINICAL HISTORY: Shortness of breath/leg DVT COMPARISON: 2012 TECHNIQUE: Dynamically enhanced axial 3 mm thick images of the chest were obtained during administra tion of <100> mL Isovue 370 IV contrast. Coronal and oblique reconstruction images were generated and reviewed. Exam utilizes a protocol for optimal evaluation of pulmonary arterial tree. Maximum intensity projections 3D imaging was utilized All CT scans are performed using dose optimization technique as appropriate and may include automated exposure control or mA/KV adjustment according to patient size. FINDINGS: A pulmonary embolus is not seen. A thoracic aortic aneurysm is not noted. Ascending thoracic aorta has an AP diameter 3.7 centimeters A pleural effusion is not seen. A pericardial effusion is not seen. A lung consolidation is not present. Calcified granuloma left lung IMPRESSION: Negative for a pulmonary embolism.
[2019-12-12] MEDS ORDERED: POTASSIUM 25 MEQ EFFERV TAB ONE (19:11)
[2019-12-12] MEDS ORDERED: ENOXAPARIN 100 MG/ML SYR SQ ONE (19:32)
--- NOTE | 2019-12-12 19:35 | EDPHYS ---
Physician Documentation [facility] Name: Keara Castañeda Age: 69 yrs Sex: Female : 1950 Arrival Date: 12/12/2019 Time: 15:41 Bed 14 Private MD: ED Physician Dayron Canales HPI: 12/12 15:51 This 69 yrs old Female presents to ER via EMS with complaints of Leg Swelling.cp 15:51 The patient presents with swelling, tenderness. The complaints affect the left lower cp extremity. Context: resulted from an unknown cause, uses a walker. Onset: The symptoms/episode began/occurred at an unknown time. Associated signs and symptoms: Pertinent negatives fever, numbness, rash, warmth. Treatment prior to arrival includes: no previous treatment. Severity of symptoms: in the emergency department the symptoms are unchanged, despite home interventions. Historical: - Allergies: 15:57 Codeine; ph 15:57 Sulfa (Sulfonamide Antibiotics); ph - Home Meds: 15:57 donepezil oral oral [Active]; spironolactone Oral [Active]; cholecalciferol (vitamin ph D3) 400 unit oral tab [Active]; alendronate oral oral [Active]; Triamcinolone Acetonide Topical [Active]; Ketoconazole Topical [Active]; Protonix Oral [Active]; amlodipine oral [Active]; Metoprolol Tartrate Oral [Active]; Potassium Chloride Oral [Active]; losartan oral oral [Active]; alendronate oral oral [Active]; - PMHx: 15:57 brain anuresm; embolism uknown; High Cholesterol; Hypertension; ph - PSHx: 15:57 brain surgery; shunt placement; Tonsillectomy; vena cava filter; abd sx; ph - Immunization history:: Adult Immunizations unknown. - Coronavirus screen:: The patient has NOT traveled to [place] in the past 14 days. The patient has NOT had contact with known/suspected case of Coronavirus?. - Social history:: Smoking status: Patient denies any tobacco usage or history of. - Ebola Screening: : No symptoms or risks identified at this time. ROS: 15:55 Constitutional: Negative for body aches, chills, fever, poor PO intake. cp 15:55 Eyes: Negative for injury, pain, redness, and discharge. cp 15:55 ENT: Negative for drainage from ear(s), ear pain, sore throat, difficulty swallowing, difficulty handling secretions. 15:55 Cardiovascular: Negative for chest pain, palpitations. 15:55 Respiratory: Negative for cough, shortness of breath, wheezing. 15:55 Abdomen/GI: Negative for abdominal pain, nausea, vomiting, and diarrhea. 15:55 MS/extremity: Positive for swelling, tenderness, of the left leg, Negative for injury or acute deformity, decreased range of motion. 15:55 Skin: Negative for cellulitis, rash. 15:55 Neuro: Negative for altered mental status, headache, weakness. 15:55 All other systems are negative. Exam: 15:53 ECG was reviewed by the Attending Physician. cp 16:00 Constitutional: The patient appears in no acute distress, alert, awake, cp non-diaphoretic, non-toxic, well developed, well nourished, uncomfortable. 16:00 Head/Face: Normocephalic, atraumatic. cp 16:00 Eyes: Periorbital structures: appear normal, Pupils: equal, round, and reactive to light and accomodation, Extraocular movements: intact throughout, Conjunctiva: normal, no exudate, no injection, Sclera: no appreciated abnormality, Lids and lashes: appear normal, bilaterally. 16:00 ENT: External ear(s): are unremarkable, Nose: is normal, Mouth: Lips: moist, Oral mucosa: pink and intact, moist, Posterior pharynx: is normal, airway is patent, no erythema, no exudate, Voice: is normal. 16:00 Chest/axilla: Inspection: normal, Palpation: is normal, no crepitus, no tenderness. 16:00 Cardiovascular: Rate: normal, Rhythm: regular, Edema: marked swelling of left leg when compared to right, JVD: is not appreciated. 16:00 Respiratory: the patient does not display signs of respiratory distress, Respirations: normal, no use of accessory muscles, no retractions, no splinting, no tachypnea, labored breathing, is not present, Breath sounds: are clear throughout, no decreased breath sounds, no stridor, no wheezing. 16:00 Abdomen/GI: Inspection: abdomen appears normal, Bowel sounds: active, all quadrants, Palpation: abdomen is soft and non-tender, in all quadrants, voluntary guarding, is not appreciated, involuntary guarding, is not appreciated. 16:00 Back: pain, is absent, ROM is normal. 16:00 Skin: cellulitis, is not appreciated, no rash present. 16:00 Neuro: Orientation: to person, place \T\ time. Mentation: is normal, Motor: moves all fours, strength is normal, Sensation: is normal. Vital Signs: 15:45 BP 108 / 57; Pulse 95; Resp 18; Temp 98.1; Pulse Ox 96% on R/A; ph 17:00 BP 97 / 54; Pulse 87; Resp 18; Pulse Ox 99% on R/A; ph 18:00 BP 99 / 60; Pulse 86; Resp 18; Pulse Ox 96% on R/A; ph 19:19 BP 95 / 66; Pulse 88; Resp 19; Temp 98.2; Pulse Ox 98% ; Weight 87.54 kg; Pain 0/10; rr5 20:20 BP 102 / 78; Pulse 85; Resp 20; Pulse Ox 98% on R/A; Pain 0/10; rr5 21:00 BP 92 / 65; Pulse 79; Resp 17; Pulse Ox 97% ; rr5 22:06 BP 108 / 68; Pulse 87; Pulse Ox 100% ; mw2 23:00 BP 99 / 72; Pulse 89; Resp 18; Pulse Ox 95% ; rr5 23:40 BP 111 / 51; Pulse 80; Resp 17; Temp 98; Pulse Ox 99% ; rr5 MDM: 15:49 Patient medically screened. 19:35 Data reviewed: vital signs, nurses notes, lab test result(s), EKG, radiologic studies, cp CT scan, ultrasound. 19:35 Physician consultation: Blair Pimentel was called at 19:35, was contacted at 19:35, cp regarding admission, to the telemetry unit. patient's condition. 20:00 Physician consultation: Blair Pimentel after a discussion of the case, a recommendation cp for transfer for higher level of care is made, in the emergency department to see patient at 19:45, consulted with vascular, DR Olmos, \T\[facility] who recommends CT Venogram and consult with interventional radiology for possible thrombolysis. 12/12 15:50 Order name: Basic Metabolic Panel; Complete Time: 18:11 cp 12/12 18:11 Interpretation: Normal except: K 2.9; CL 113; BUN 24; GFR 44; CA 8.2. cp 12/12 15:50 Order name: CBC with Diff; Complete Time: 18:07 cp 12/12 18:08 Interpretation: Normal except: WBC 11.6; RBC 3.66; HGB 11.5; HCT 35.0; RDW 15.3; ROCIO% cp 76.9; LYM% 10.0; NEUT A 9.0. 12/12 15:50 Order name: LFT's; Complete Time: 18:11 cp 12/12 18:12 Interpretation: Normal except: ALT 10; BILID 0.3; ALB 2.6; GLOB 4.4; A/G 0.6. cp 12/12 15:50 Order name: Magnesium; Complete Time: 18:11 cp 12/12 18:13 Interpretation: Within normal limits: MG 2.2. cp 12/12 15:50 Order name: NT PRO-BNP; Complete Time: 18:11 cp 12/12 18:12 Interpretation: Abnormal: NT PRO-BNP 622. cp 12/12 15:50 Order name: PT-INR; Complete Time: 18:07 cp 12/12 18:12 Interpretation: Abnormal: PT 14.2. cp 12/12 15:50 Order name: Troponin (emerg Dept Use Only); Complete Time: 18:11 cp 12/12 18:12 Interpretation: TROPED < 0.02; Reviewed. cp 12/12 20:50 Order name: Lactate cp 12/12 21:00 Order name: Urine Microscopic Only cp 12/12 21:11 Order name: Urine Dipstick--Ancillary (enter results) mw2 12/12 21:11 Order name: Blood Culture Adult (2) cp 12/12 21:11 Order name: Urine Culture cp 12/12 21:21 Order name: Urine Dipstick-Ancillary; Complete Time: 21:43 EDMS 12/12 21:44 Interpretation: Normal except: UBLD 2+; UPROT 1+; U NIT POSITIVE; UESTR 3+. cp 12/12 21:33 Order name: Urine Microscopic Only; Complete Time: 21:43 EDMS 12/12 21:44 Interpretation: Normal except: UWBC 20-50; UBACT >50; SQEPI 5-10. cp 12/12 15:50 Order name: XRAY Chest (1 view); Complete Time: 18:07 12/12 15:50 Order name: EKG; Complete Time: 15:51 cp 12/12 15:50 Order name: Cardiac monitoring; Complete Time: 18:49 cp 12/12 15:50 Order name: EKG - Nurse/Tech; Complete Time: 15:59 cp 12/12 15:50 Order name: IV Saline Lock; Complete Time: 17:32 cp 12/12 15:50 Order name: Labs collected and sent; Complete Time: 17:32 cp 12/12 15:50 Order name: O2 Per Protocol; Complete Time: 18:49 cp 12/12 15:50 Order name: US Extremity Venous W Compression Andrews; Complete Time: 18:07 12/12 18:08 Interpretation: Report reviewed. 12/12 16:59 Order name: CT Chest For PE Angio 12/12 19:38 Order name: CT; Complete Time: 20:47 EDMS 12/12 21:37 Order name: Lactate; Complete Time: 21:43 EDMS 12/12 22:18 Interpretation: Within normal limits: LAC 1.3. 12/12 15:50 Order name: O2 Sat Monitoring; Complete Time: 18:49 12/12 21:00 Order name: Urine Dipstick-Ancillary (obtain specimen); Complete Time: 23:12 cp EC:53 Rate is 86 beats/min. Rhythm is regular. QRS interval is normal. QT interval is normal. cp Interpreted by me. Reviewed by me. Administered Medications: 19:16 Drug: Potassium Effervescent Tablet 50 mEq Route: PO; rr5 20:20 Follow up: Response: No adverse reaction rr5 19:36 Drug: Lovenox 1 mg/kg Route: Sub-Q; Site: right lower abdomen; rr5 20:40 Follow up: Response: No adverse reaction rr5 21:10 Drug: NS 0.9% 1000 ml Route: IV; Rate: 1 bolus; Site: right forearm; rr5 22:30 Follow up: Response: No adverse reaction; IV Status: Completed infusion; IV Intake: rr5 1000ml 22:30 Follow up: Response: No adverse reaction; IV Status: Completed infusion; IV Intake: rr5 1000ml 21:56 Drug: Rocephin - (cefTRIAXone) 1 grams Route: IVPB; Infused Over: 30 mins; Site: right rr5 forearm; 23:00 Follow up: Response: No adverse reaction; IV Status: Completed infusion; IV Intake: 14ychd4 23:37 Drug: NS 0.9% 1000 ml Route: IV; Rate: 75 ml/hr; Site: right forearm; rr5 23:45 Follow up: Response: No adverse reaction; IV Status: Infusion continued upon transfer rr5 Disposition: 12/12/19 20:16 Transfer ordered to [facility]. Diagnosis are Acute embolism and thrombosis of deep veins of lower extremity - bilateral, Hypokalemia, Urinary tract infection, site not specified. - Reason for transfer: Higher level of care. - Accepting physician is DR Chacon. - Condition is Stable. - Problem is new. - Symptoms are unchanged. Addendum: 12/15/2019 08:21 Co-signature as Attending Physician, Dayron Canales MD I agree with the assessment and k dr plan of care. Signatures: Dispatcher [employer] EDNY Dayron Canales MD MD [facility] Lyndsay Sidhu, RN RN ph Naseem Hopper PA PA cp Shahbaz Chavarria, RN RN rr5 Corrections: (The following items were deleted from the chart) 12/12 18:11 18:11 Normal except: K 2.9; CL 113; BUN 24; GFR 44. cp cp 19:48 19:34 Hospitalization Ordered by Blair Pimentel for Inpatient Admission. Preliminary cp diagnosis is Acute embolism and thrombosis of deep veins of lower extremity. Bed requested for Telemetry/MedSurg (Inpatient). Status is Inpatient Admission. Condition is Stable. Problem is new. Symptoms are unchanged. cp 20:14 19:48 12/12/2019 19:34 Hospitalization Ordered by Blair Pimentel for Inpatient cp Admission. Preliminary diagnosis is Acute embolism and thrombosis of deep veins of lower extremity; Hypokalemia. Bed requested for Telemetry/MedSurg (Inpatient). Status is Inpatient Admission. Condition is Stable. Problem is new. Symptoms are unchanged. cp 20:55 20:16 12/12/2019 20:16 Transfer ordered to [facility]. cp Diagnosis is Acute embolism and thrombosis of deep veins of lower extremity - bilateral; Hypokalemia. Reason for transfer: Higher level of care. Accepting physician is Doctor. Condition is Stable. Problem is new. Symptoms are unchanged. cp 21:10 20:55 12/12/2019 20:16 Transfer ordered to [facility]. cp Diagnosis is Acute embolism and thrombosis of deep veins of lower extremity - bilateral; Hypokalemia. Reason for transfer: Higher level of care. Accepting physician is DR Chacon. Condition is Stable. Problem is new. Symptoms are unchanged. cp 23:50 21:10 12/12/2019 20:16 Transfer ordered to [facility]. rr5 Diagnosis is Acute embolism and thrombosis of deep veins of lower extremity - bilateral; Hypokalemia; Urinary tract infection, site not specified. Reason for transfer: Higher level of care. Accepting physician is DR Chacon. Condition is Stable. Problem is new. Symptoms are unchanged. cp
--- NOTE | 2019-12-12 19:35 | ER ---
Nurse's Notes [facility] Name: Keara Castañeda Age: 69 yrs Sex: Female : 1950 Arrival Date: 12/12/2019 Time: 15:41 Bed 14 Private MD: Diagnosis: Acute embolism and thrombosis of deep veins of lower extremity-bilateral;Hypokalemia;Urinary tract infection, site not specified Presentation: 12/12 15:42 Presenting complaint: EMS states: Pt from assisted living, c/o L leg swelling, reports ph that leg has been slightly swollen for about a year, today swelling is much worse, leg also red and painful w/ ambulation and movement. Transition of care: patient was not received from another setting of care. Onset of symptoms was December 12, 2019. Risk Assessment: Do you want to hurt yourself or someone else? Patient reports no desire to harm self or others. Initial Sepsis Screen: Does the patient meet any 2 criteria? No. Patient's initial sepsis screen is negative. Does the patient have a suspected source of infection? No. Patient's initial sepsis screen is negative. Care prior to arrival: None. 15:42 Method Of Arrival: EMS: [facility] ph 15:42 Acuity: SELENA 3 ph Historical: - Allergies: 15:57 Codeine; ph 15:57 Sulfa (Sulfonamide Antibiotics); ph - Home Meds: 15:57 donepezil oral oral [Active]; spironolactone Oral [Active]; cholecalciferol (vitamin ph D3) 400 unit oral tab [Active]; alendronate oral oral [Active]; Triamcinolone Acetonide Topical [Active]; Ketoconazole Topical [Active]; Protonix Oral [Active]; amlodipine oral [Active]; Metoprolol Tartrate Oral [Active]; Potassium Chloride Oral [Active]; losartan oral oral [Active]; alendronate oral oral [Active]; - PMHx: 15:57 brain anuresm; embolism uknown; High Cholesterol; Hypertension; ph - PSHx: 15:57 brain surgery; shunt placement; Tonsillectomy; vena cava filter; abd sx; ph - Immunization history:: Adult Immunizations unknown. - Coronavirus screen:: The patient has NOT traveled to [place] in the past 14 days. The patient has NOT had contact with known/suspected case of Coronavirus?. - Social history:: Smoking status: Patient denies any tobacco usage or history of. - Ebola Screening: : No symptoms or risks identified at this time. Screenin:58 Abuse screen: Denies threats or abuse. Denies injuries from another. Nutritional ph screening: No deficits noted. Tuberculosis screening: No symptoms or risk factors identified. Fall Risk None identified. Assessment: 16:30 General: Appears in no apparent distress. comfortable, Behavior is calm, cooperative, ph appropriate for age, Denies fever. Pain: Complains of pain in left leg. Neuro: Level of Consciousness is awake, alert, obeys commands, Oriented to person, place, time, situation. Cardiovascular: Reports fatigue, Denies chest pain, shortness of breath, Capillary refill < 3 seconds in bilateral fingers toes Patient's skin is warm and dry. Pulses are palpable in right dorsalis pedis artery and left dorsalis pedis artery Edema is 1+ to right lower thigh, right knee, right midcalf, right ankle and right foot is 3+ to left lower thigh, left knee, left midcalf, left ankle and left foot. Respiratory: Airway is patent Respiratory effort is even, unlabored, Respiratory pattern is regular, symmetrical, Denies shortness of breath. GI: No signs and/or symptoms were reported involving the gastrointestinal system. Derm: Skin is intact, is fragile, is thin, Skin is pink, warm \T\ dry. Musculoskeletal: Circulation, motion, and sensation intact. Range of motion: intact in all extremities. 18:00 Reassessment: Patient appears in no apparent distress at this time. Patient and/or ph family updated on plan of care and expected duration. Pain level reassessed. Patient is alert, oriented x 3, equal unlabored respirations, skin warm/dry/pink. 19:20 General: Appears in no apparent distress. comfortable, Behavior is calm, cooperative, rr5 appropriate for age, awaiting for CT PE result.. Pain: Denies pain. Neuro: Level of Consciousness is awake, alert, obeys commands, Oriented to person, place, time, situation, Appropriate for age. Cardiovascular: Capillary refill < 3 seconds Patient's skin is warm and dry. Pulses are palpable in right dorsalis pedis artery and left dorsalis pedis artery Edema +3 on left leg, +1 on right leg. Respiratory: Airway is patent Respiratory effort is even, unlabored, Respiratory pattern is regular, symmetrical. GI: No signs and/or symptoms were reported involving the gastrointestinal system. : No signs and/or symptoms were reported regarding the genitourinary system. EENT: No signs and/or symptoms were reported regarding the EENT system. Derm: Skin is intact, is fragile, is thin, Skin temperature is warm. 19:22 Musculoskeletal: Capillary refill < 3 seconds, Swelling present in right leg and left rr5 leg. 20:30 Reassessment: Patient appears in no apparent distress at this time. Patient is alert, rr5 oriented x 3, equal unlabored respirations, skin warm/dry/pink. hospitalist came and discussed with ED provider patient will be for transfer to other facility. patient and intelligence support officer agreed. 21:30 Reassessment: Patient appears in no apparent distress at this time. No changes from rr5 previously documented assessment. Patient is alert, oriented x 3, equal unlabored respirations, skin warm/dry/pink. awaiting for acceptance to other facility. chatting with her intelligence support officer, no complaints made. 22:30 Reassessment: Patient appears in no apparent distress at this time. No changes from rr5 previously documented assessment. diaper wet, patient able to move side to side turn on her own while doing after care. vital signs taken and recorded patient denies any pain. 23:35 Reassessment: Patient appears in no apparent distress at this time. positive BM, on the rr5 bed, after care done, diaper changed. 23:40 Reassessment: Patient appears in no apparent distress at this time. Patient is alert, rr5 oriented x 3, equal unlabored respirations, skin warm/dry/pink. report given to [facility] awake conscious and coherent not in distress no complaints made, with IV cannula G22 at right forearm started NS 75 ml/Hr infusing well. vital signs taken and recorded. Vital Signs: 15:45 BP 108 / 57; Pulse 95; Resp 18; Temp 98.1; Pulse Ox 96% on R/A; ph 17:00 BP 97 / 54; Pulse 87; Resp 18; Pulse Ox 99% on R/A; ph 18:00 BP 99 / 60; Pulse 86; Resp 18; Pulse Ox 96% on R/A; ph 19:19 BP 95 / 66; Pulse 88; Resp 19; Temp 98.2; Pulse Ox 98% ; Weight 87.54 kg; Pain 0/10; rr5 20:20 BP 102 / 78; Pulse 85; Resp 20; Pulse Ox 98% on R/A; Pain 0/10; rr5 21:00 BP 92 / 65; Pulse 79; Resp 17; Pulse Ox 97% ; rr5 22:06 BP 108 / 68; Pulse 87; Pulse Ox 100% ; mw2 23:00 BP 99 / 72; Pulse 89; Resp 18; Pulse Ox 95% ; rr5 23:40 BP 111 / 51; Pulse 80; Resp 17; Temp 98; Pulse Ox 99% ; rr5 ED Course: 15:41 Patient arrived in ED. ph 15:42 Naseem oHpper PA is PHCP. cp 15:43 Dayron Canales MD is Attending Physician. cp 15:45 Triage completed. ph 15:48 EKG done, by aviation survival technician. reviewed by Dayron Canales MD. tc 15:57 Arm band placed on Patient placed in an exam room, on a stretcher, on supervisory forester, ph on pulse oximetry. 15:58 Patient has correct armband on for positive identification. Bed in low position. Call ph light in reach. Side rails up X 1. Pulse ox on. NIBP on. Door closed. Noise minimized. Warm blanket given. 16:20 XRAY Chest (1 view) In Process Unspecified. EDMS 16:50 US Extremity Venous W Compression Andrews In Process Unspecified. EDMS 17:32 Initial lab(s) drawn, by me, sent to lab. Inserted saline lock: 22 gauge in right em1 forearm, using aseptic technique. Blood collected. 17:48 Radiology exam delayed due to lab results not completed at this time. (BUN/Creatinine). eh 17:55 Lyndsay Sidhu, RN is Primary Nurse. ph 19:22 No provider procedures requiring assistance completed. Patient admitted, IV remains in ph place. 19:33 Blair Pimentel is Hospitalizing Provider. cp Administered Medications: 19:16 Drug: Potassium Effervescent Tablet 50 mEq Route: PO; rr5 20:20 Follow up: Response: No adverse reaction rr5 19:36 Drug: Lovenox 1 mg/kg Route: Sub-Q; Site: right lower abdomen; rr5 20:40 Follow up: Response: No adverse reaction rr5 21:10 Drug: NS 0.9% 1000 ml Route: IV; Rate: 1 bolus; Site: right forearm; rr5 22:30 Follow up: Response: No adverse reaction; IV Status: Completed infusion; IV Intake: rr5 1000ml 22:30 Follow up: Response: No adverse reaction; IV Status: Completed infusion; IV Intake: rr5 1000ml 21:56 Drug: Rocephin - (cefTRIAXone) 1 grams Route: IVPB; Infused Over: 30 mins; Site: right rr5 forearm; 23:00 Follow up: Response: No adverse reaction; IV Status: Completed infusion; IV Intake: 71pmwe4 23:37 Drug: NS 0.9% 1000 ml Route: IV; Rate: 75 ml/hr; Site: right forearm; rr5 23:45 Follow up: Response: No adverse reaction; IV Status: Infusion continued upon transfer rr5 Intake: 22:30 IV: 1000ml; Total: 1000ml. rr5 22:30 IV: 1000ml; Total: 2000ml. rr5 23:00 IV: 50ml; Total: 2050ml. rr5 23:00 urine wet rr5 Output: 23:00 Other: 1 (Diapers) ; Total: 0ml. rr5 23:41 Stool: 1 (Loose Stool) ; Total: 0ml. rr5 23:00 urine wet rr5 Outcome: 19:34 Decision to Hospitalize by Provider. cp 20:16 ER care complete, transfer ordered by MD. cp 23:49 Transferred by ground [facility] to [facility], Transfer form completed. rr5 23:49 Condition: stable rr5 23:49 Instructed on the need for transfer. 23:50 Patient left the ED. rr5 Addendum: 12/18/2019 07:27 Addendum: Culture Results: Positive urine culture. Phone call Attempt #1 Faxed urine s s culture report to [facility] ATTN er. FAX # [phone]. Signatures: Dispatcher [employer] EDMS Kadeem Zavala Eric em1 Brenda Flores RN RN ss Christine Stoll EKG Tech EKG [facility] Lyndsay Sidhu RN RN ph PageNaseem PA PA cp [place], Suhas mw2 Shahbaz Chavarria, RN RN rr5
[2019-12-12] MEDS ORDERED: NA CHLORIDE 0.9% 1,000 ML ONE ×2 (21:05→23:39)
[2019-12-12 21:19] LABS: Urine Blood 2+ (NEG); Urine Glucose NEGATIVE (NEG); Urine Protein 1+ (NEG)
[2019-12-12] MEDS ORDERED: CEFTRIAXONE/SWI 1gm 1 GM/10 ML SYR ONE (21:19)
[2019-12-12 21:32] LABS: Urine Bacteria >50 /HPF (<20); Urine Culture Reflex Order NOT NEEDED; Urine RBC <5 /HPF (NONE SEEN)
[2019-12-13 02:56] VITALS: BP 111/51; TEMP 98; O2SAT 99
--- NOTE | 2019-12-13 16:29 | EKG ---
Test Date: 2019-12-12 Test Time: 15:44:29 Public Welfare Director: TC MEASUREMENT RESULTS: Intervals: Rate: 86 GA: QRSD: 96 QT: 392 QTc: 469 Okay: P: GA: QRS: 8 T: 19 INTERPRETIVE STATEMENTS: Accelerated Junctional rhythm Cannot rule out Anterior infarct, age undetermined Abnormal ECG Compared to ECG 09/19/2019 00:23:38 Accelerated junctional rhythm now present Myocardial infarct finding now present Sinus tachycardia no longer present Atrial premature complex(es) no longer present Left-axis deviation no longer present T-wave abnormality no longer present Electronically Signed On 12-13-19 16:27:36 CARBON SETTER by Ken Gonzáles
== END 2019-12-12 23:50 | disposition short-term general hospital (02) ==
LOC: ER 15:34
DX: I82.4Z3 Acute embolism and thrombosis of unspecified deep veins of distal lower extremity, bilateral (principal); E87.6 Hypokalemia; N39.0 Urinary tract infection, site not specified; Z88.6 Allergy status to analgesic agent; Z88.2 Allergy status to sulfonamides; I10 Essential (primary) hypertension; E78.00 Pure hypercholesterolemia, unspecified
CPT/HCPCS: 96365; 96361; 93005; 87040 ×2; 87088; 85025; 87086; 80048; 36415; 83735; 85610; 80076; 83605; 87077; 87186; 84484; 83880; 71275; 71045; 93970; 96372; 99285; Q9967; J1650; J0696; J7030 ×2; 81003; 81015